=== PATIENT | female | born 1945 | race Caucasian/White ===

== ENCOUNTER 2019-12-17 12:10 | Outpatient (CLI) | payer MEDICARE, SELFPAY | END 2019-12-17 12:11 | disposition home or self-care (01) | LOC: CHSIMG 12:14 | PROVIDERS: Visit Provider Specialist | DX: I25.119 Atherosclerotic heart disease of native coronary artery with unspecified angina pectoris (principal); Z95.1 Presence of aortocoronary bypass graft | CPT/HCPCS: 93306 ==

== ENCOUNTER 2022-11-16 11:19 | Outpatient (CLI) | payer MEDICARE, SELFPAY ==
[2022-11-16 12:11] LABS: Alanine Aminotransferase 22 U/L (14-59); Anion Gap 5 mmol/L (8-16); Aspartate Amino Transferase 21 U/L (15-37); Bilirubin,Total 0.7 mg/dL (0.00-1.00); Blood Urea Nitrogen 25 mg/dL (7-18); Calcium 9.4 mg/dL (8.5-10.1); Carbon Dioxide 34 mmol/L (21-32); Chloride 103 mmol/L (98-108); Estimated Glomerular Filt Rate 47; Glucose 97 mg/dL (70-99); Osmolality Calculated 298 mOsm/kg (285-295); Potassium 3.3 mmol/L (3.5-5.1); Sodium 142 mmol/L (136-145); Total Protein 7.7 g/dL (6.4-8.2)
[2022-11-16 12:12] LABS: Albumin Level 3.7 g/dL (3.4-5.0); Alkaline Phosphatase 82 U/L (46-116); Cholesterol 199 mg/dL (0-200); HDL Direct 48 mg/dL (40-60); LDL Cholesterol Calculated 113 mg/dL (<130); Triglycerides 190 mg/dL (0-150)
== END 2022-11-16 11:20 | disposition home or self-care (01) ==
LOC: CHSLAB 11:23
PROVIDERS: PCP Family Medicine; Visit Provider Internal Medicine Cardiovascular Disease
DX: E78.2 Mixed hyperlipidemia (principal); Z79.899 Other long term (current) drug therapy
CPT/HCPCS: 36415; 80053; 80061

== ENCOUNTER 2023-01-17 12:17 | Outpatient (CLI) | payer MEDICARE, SELFPAY ==
[2023-01-17 12:55] LABS: Anion Gap 9 mmol/L (8-16); Blood Urea Nitrogen 24 mg/dL (7-18); Calcium 9.4 mg/dL (8.5-10.1); Carbon Dioxide 32 mmol/L (21-32); Chloride 104 mmol/L (98-108); Cholesterol 171 mg/dL (0-200); Estimated Glomerular Filt Rate 55; Glucose 115 mg/dL (70-99); HDL Direct 46 mg/dL (40-60); LDL Cholesterol Calculated 81 mg/dL (<130); Osmolality Calculated 305 mOsm/kg (285-295); Potassium 3.5 mmol/L (3.5-5.1); Sodium 145 mmol/L (136-145); Triglycerides 220 mg/dL (0-150)
== END 2023-01-17 12:18 | disposition home or self-care (01) ==
LOC: CHSLAB 12:19
PROVIDERS: PCP Family Medicine; Visit Provider Internal Medicine Cardiovascular Disease
DX: E78.2 Mixed hyperlipidemia (principal); Z79.899 Other long term (current) drug therapy
CPT/HCPCS: 36415; 80048; 80061

== ENCOUNTER 2023-07-05 14:36 | Outpatient (CLI) | payer MEDICARE, SELFPAY ==
--- NOTE | ~2023-07-05 | XR_ITS ---
XR_CERV2-3V_CR DATE: 07/05/2023 14:57 INDICATION: Cervical spinal stenosis TECHNIQUE: Standing AP and standing flexion and extension lateral views only COMPARISON: None FINDINGS: C1 and C2 appear normally aligned and the odontoid process appears intact. There is approximately 3 mm anterolisthesis at C3-4 and C4-5 in flexion, reduced to less than 1 mm at C3-4 in extension and 1.5 mm at C4-5 and extension. There is very severe degenerative disc disease and possible fusion at C5-6 with 1.6 mm retrolisthesis , stable in flexion and extension. Severe degenerative disc disease at C6-7. No fracture or dislocation, locked facet or prevertebral soft tissue swelling is noted. There is degenerative change at the apophyseal joints throughout the cervical spine and at the uncove rtebral joints in the mid and lower cervical spine. Status post sternotomy. Right Port-A-Cath catheter overlies superior vena cava. The patient is edentulous. IMPRESSION: Prominent cervical spondylosis Reviewed, dictated and finalized at [facility]. Reviewed, dictated and finalized at location A.
== END 2023-07-05 14:37 | disposition home or self-care (01) ==
PROVIDERS: PCP Family Medicine; Visit Provider Neurological Surgery
DX: M48.02 Spinal stenosis, cervical region (principal); M47.892 Other spondylosis, cervical region
CPT/HCPCS: 72040

== ENCOUNTER 2023-08-06 10:06 | Outpatient (CLI) | payer MEDICARE, SELFPAY ==
--- NOTE | 2023-08-06 10:19 | ECG_ITS ---
Measurements Intervals [place] Rate: 62 P: 62 [place]: 202 QRS: -13 QRSD: 103 T: 0 QT: 431 QTc: 439 Interpretive Statements SINUS RHYTHM INCOMPLETE RIGHT BUNDLE BRANCH BLOCK [90+ ms QRS DURATION, TERMINAL R IN V1/V2, 40+ ms S IN I/aVL/V4/V5/V6] NONSPECIFIC ST & T-WAVE ABNORMALITY NO PREVIOUS ECG AVAILABLE FOR COMPARISON Electronically Signed On 08-06-2023 19:56:12 CDT by Ela Lyon M.D.
[2023-08-06 10:45] LABS: Hematocrit 42.3 % (37.0-47.0); Hemoglobin 13.4 g/dL (12.0-15.0); Mean Corpuscular HGB Conc 31.7 g/dl (32-36); Mean Corpuscular Volume 88.5 fl (80-100); Mean Platelet Volume 11.7 fl (7.4-10.4); Platelet Count Result 252 k/mm3 (150-375); Red Blood Count 4.78 M/mm3 (4.2-5.4); Red Cell Distribution Width 14.1 % (11.5-14.5); White Blood Count 7.6 K/mm3 (4.5-10.0)
[2023-08-06 10:49] LABS: Appearance Urine Clear (Clear); Bilirubin Urine Negative (Negative); Blood Urine Negative (Negative); Color Urine Yellow (Yellow); Glucose Urine UA Negative (Negative); Ketones Urine Negative (Negative); Leukocyte Esterase Ur Negative LEU/UL (NEGATIVE); Nitrate Urine Negative (Negative); Protein Urine Negative (Negative); Specific Grav Ur 1.021 (1.001-1.035); Urobilinogen Urine 0.2 mg/dL (<2.0); pH Urine 5.5 (5.0-9.0)
[2023-08-06 10:54] LABS: Anion Gap 7 mmol/L (8-16); Blood Urea Nitrogen 24 mg/dL (7-17); Calcium 9.7 mg/dL (8.4-10.2); Carbon Dioxide 33 mmol/L (22-30); Chloride 101 mmol/L (98-107); Estimated Glomerular Filt Rate 54; Glucose 102 mg/dL (65-110); Potassium 3.8 mmol/L (3.4-5.0); Sodium 141 mmol/L (137-145)
[2023-08-06 11:09] LABS: Add Urine Microscopic? NO
[2023-08-06 11:11] LABS: INR 0.9; Prothrombin Time 12.5 Seconds (11.1-14.7)
[2023-08-06 11:12] LABS: Partial Thromboplastin Time 25.8 SECONDS (22.3-36.8)
== END 2023-08-06 10:07 | disposition home or self-care (01) ==
LOC: ANHSURGERY 10:10
PROVIDERS: PCP Family Medicine; Visit Provider Neurological Surgery
DX: Z01.818 Encounter for other preprocedural examination (principal); M48.02 Spinal stenosis, cervical region; I45.19 Other right bundle-branch block; R93.1 Abnormal findings on diagnostic imaging of heart and coronary circulation
CPT/HCPCS: 36415; 80048; 81003; 85027; 85610; 85730; 86850; 86900; 86901; 93005

== ENCOUNTER 2023-08-28 14:38 | Inpatient (IN) | payer MEDICARE, SELFPAY ==
[2023-08-05 14:12] VITALS: BMI 29.4
--- NOTE | 2023-08-05 14:39 | PC.NURSE ---
PRE-OP INSTRUCTIONS, PLEASE READ CAREFULLY Report to the Outpatient Waiting Room, entrance under the green pavilion located off [facility], at time _0800_ on date _08/08/23_. Planned Procedure Time: _1000_. PACK A SMALL OVERNIGHT BAG AND LEAVE IN THE CAR Time changes happen often and if your time is changed the preop area will call you the afternoon before. - You and your visitor will be asked to self-screen and do not enter if you have any COVID symptoms. - A mask is optional within the hospital at this time. -VISITING HOURS 8AM-8PM Patients may have clear liquids (water, carbonated beverages, clear teas, apple juice) until 3 hours prior to surgery (0700 AM) with a maximum of 20 ounces. - No food from midnight until time of surgery Take the following medications with a SIP of water the morning of surgery: _CARVEDILOL, SERTRALINE, - TRAMADOL IF NEEDED _ DO NOT STOP ANY OF YOUR OTHER PRESCRIPTION MEDICATIONS PRIOR TO SURGERY ?EXCEPT THE FOLLOWING Medications to discontinue per DR. BAILEY - _PT STATES LAST TAKING ASPIRIN 08/02/23_ Medications to discontinue per ANESTHESIA - _MULTIVITAMIN OF TODAY Date to take last dose 08/05/23_ Please no make-up, nail macedonian, hairspray, perfume, deodorant, or body powder the day of surgery. No jewelry (including any body piercings) or valuables the day of surgery, leave them at home. Please take a shower or bath the night before, or the morning of, surgery with an antibacterial soap. Wear comfortable, loose fitting clothing. - Jewelry must be removed prior to entering the operating room. Rings and piercings that are not removed may be cut off. - The hospital will not accept responsibility for valuables. - Please leave all valuables, including medications, at home the day of surgery. If you are going home after surgery, a licensed armor reconnaissance vehicle driver must drive you home. - NO public transportation without another adult if you receive anesthesia. - We recommend that an adult stay with you for 24 hours following discharge. - We also recommend that you do not drive, make important decision, drink alcoholic beverages, or take any drugs that were not prescribed by your health care provider for at least 24 hours after your discharge time. Follow any additional instructions given to you from your surgeon. If you or anyone in your household have experienced Covid symptoms in the past week, please notify your surgeon or the nurse liaison at the phone number below for possible testing. Telephone instructions given to _PATIENT_and asked if any additional questions and then verbalized understanding. Patient advised to call surgeon office or pre surgery nurse liaison [phone] if any additional questions.
--- NOTE | 2023-08-07 14:21 | WPDANESEPPF ---
Anes - Initial Pre Proc Eval Procedure: Operation Date: 08/08/23 10:00 Proposed Procedures p C3-4, C4-5, C5-6, C6-7 Posterior Cervical Decompression and Fusion - Florecita Lopez MD Date/Time: 08/07/23 14:21 Surgeon: lForecita Lopez MD Pre Op Diagnosis: cervical stenosis Patient Data Age: 78 Gender: F Height: 1.63 m Weight: 77.72 kg Allergies Allergy/AdvReac Type Severity Reaction Status Date / Time NSAIDS (Non-Steroidal AdvReac Gastrointestinal Verified 08/05/23 14:05 Anti-Inflamma Upset Home Medications Medication Instructions Recorded Confirmed Type atorvastatin 40 mg tablet 40 mg PO QHS 07/05/23 08/05/23 History carvedilol 12.5 mg tablet 12.5 mg PO Q12H 07/05/23 08/05/23 History chlorthalidone 25 mg tablet 25 mg PO DAILY 07/05/23 08/05/23 History omeprazole 20 mg capsule,delayed 20 mg PO DAILY 07/05/23 08/05/23 History release sertraline 100 mg tablet 200 mg PO DAILY 07/05/23 08/05/23 History aspirin 81 mg tablet,delayed 162 mg PO HS 08/05/23 08/05/23 History release cetirizine 10 mg tablet (Zyrtec) 10 mg PO DAILY 08/05/23 08/05/23 History multivitamin 1 tablet PO DAILY 08/05/23 08/05/23 History potassium 20 mg chewable tablet 60 mg PO DAILY 08/05/23 08/05/23 History tramadol 50 mg tablet 50 mg PO BID PRN Pain 08/05/23 08/05/23 History Results Review: All pre-operative results and documents have been reviewed as part of the pre-operative evaluation. [facility] Past Medical History Medical History (Updated 08/07/23 @ 14:22 by Amado Mercedes DO) Fibromyalgia Heart disease Hyperlipemia NEDRA (obstructive sleep apnea) Rheumatoid arthritis Surgical History Surgical History (Updated 08/07/23 @ 14:22 by Amado Mercedes DO) History of Hx of CABG Family History Family History (Updated 07/05/23 @ 15:47 by Reba Green) Father Alcoholism Hypertension Heart problem Mother Hypertension Social History Social History (Updated 07/05/23 @ 15:48 by Reba Green) Smoking packs per day: 1 Smoking cigarettes per day: 20.0 Years smoked: 35 Smoking pack-years: 35.00 Smoking status: Former smoker Tobacco type: cigarettes Second hand tobacco smoke exposure: No Smoking end date: 10/14/93 Alcohol intake: current Alcohol use details: RARELY - COUPLE TIMES A YEAR Substance use: never Substance use type: does not use Lack of Transportation: No Lack of Food: Never True Concerned About Future Housing: No Difficulty Paying Gas/Electric Bills: No Difficulty Paying for Meds: No Currently Unemployed: No Education: Associate Degree Difficulty w/ Childcare or Family Care: YES Living arrangements: with family Additional living arrangements comments: LIVES WITH [id number] Occupation/Education: retired Gender identity (if verbalized by the patient): Female Sexual Orientation (if Verbalized by the Patient): Straight or Heterosexual Spiritual care concerns: No Anes - Eval Final PreProcedure Day of Procedure 08/07/23 14:21 Patient weight: overweight Heart: regular rate and rhythm Lungs: clear to auscultation Airway: Mallampati scale class II Neurological: alert and oriented Last oral intake: >/= 8 hours ASA classification: III Emergent: no Anesthetic plan: proceed Anesthesia type and monitoring: general ETT and standard monitoring Results Review: All pre-operative results and documents have been reviewed as part of the pre-operative evaluation. Informed Consent: The patient's anesthetic plan and its attendant risks and benefits were discussed with the patient/family/POA. Questions were solicited and answers provided to the satisfaction of the patient/family/POA.
--- NOTE | 2023-08-26 10:33 | PC.NURSE ---
Addendum entered by Estelle José RN 08/26/23 10:43: BRING CPAP DAY OF SURGERY Original Note: Report to the Outpatient Waiting Room, entrance under the green pavilion located off [facility], at time __0730 on date __08/28/23 . Planned Procedure Time: __929 . Time changes happen often and if your time is changed the preop area will call you the afternoon before. - You and your visitor will be asked to self-screen and do not enter if you have any COVID symptoms. - A mask is optional within the hospital at this time. Patients may have clear liquids (water, carbonated beverages, clear teas, apple juice) until 3 hours prior to surgery with a maximum of 20 ounces. - No food from midnight until time of surgery - Infants may have breast milk until 4 hours before surgery, infant formula 6 hours prior to surgery. - Children will be allowed to drink immediately following surgery. If applicable, please bring a bottle or sippy cup to assist with drinking. Juice, water, soda, and popsicles are readily available. For infants on formula, please bring formula the day of surgery. Pacifiers are allowed. Take the following medications with a SIP of water the morning of surgery: __CARVEDILOL, SERTRALINE DO NOT STOP ANY OF YOUR OTHER PRESCRIPTION MEDICATIONS PRIOR TO SURGERY ?EXCEPT THE FOLLOWING Medications to discontinue per physician PATIENT STATES HOLD ASPIRIN AND MULTIVITAMIN 7 DAYS PRE OP PER DR SANFORD. LAST DOSE 08/20/23 Please no make-up, nail czech, hairspray, perfume, deodorant, or body powder the day of surgery. No jewelry (including any body piercings) or valuables the day of surgery, leave them at home. Please take a shower or bath the night before, or the morning of, surgery with an antibacterial soap. Wear comfortable, loose fitting clothing. Children are encouraged to wear pajamas. - Jewelry must be removed prior to entering the operating room. Rings and piercings that are not removed may be cut off. - The hospital will not accept responsibility for valuables. - Please leave all valuables, including medications, at home the day of surgery. If you are going home after surgery, a licensed stud driver must drive you home. - NO public transportation without another adult if you receive anesthesia. - We recommend that an adult stay with you for 24 hours following discharge. - We also recommend that you do not drive, make important decision, drink alcoholic beverages, or take any drugs that were not prescribed by your health care provider for at least 24 hours after your discharge time. For Pediatric surgeries, we recommend two adults accompany the child home. Follow any additional instructions given to you from your surgeon. If you or anyone in your household have experienced Covid symptoms in the past week, please notify your surgeon or the nurse liaison at the phone number below for possible testing. Telephone instructions given to _PT and asked if any additional questions and then verbalized understanding. Patient advised to call surgeon office or pre surgery nurse liaison [phone] if any additional questions.
--- NOTE | 2023-08-26 10:39 | PC.NURSE ---
PT STATES NO CHANGE IN HEALTH HX SINCE LAST INTERVIEW ON 08/05/23
[2023-08-28] VITALS (17 sets, daily range): BP systolic 121–165; BP diastolic 61–96; PULSE 58–67; RESP 12–18; TEMP 36.1–37; O2SAT 92–98
--- NOTE | ~2023-08-28 | XR_ITS ---
EXAMINATION: XR fluoroscopy no charge DATE: 08/28/2023 13:41 INDICATION: Cervical decompression and fusion, C3-7. TECHNIQUE: A single intraoperative lateral view of the cervical spine was obtained. I was not present . Fluoroscopy exposure time was 17 seconds. COMPARISON: Cervical spine radiographs 08/04/2023 FINDINGS: There are changes of posterior fusion procedure from C3 to C7 with lateral mass screws. IMPRESSION: 1. Posterior fusion procedure from C3 to C7. Reviewed, dictated and finalized at location A. [employer]
[2023-08-28] MEDS: LACTATED RINGERS 1,000 ML 30 ML IV CONT ×2 (08:00→14:34)
--- NOTE | 2023-08-28 09:35 | WPDHPUPDATE1 ---
History and Physical Update Update Date/Time: 08/28/23 09:36 History and Physical has been reviewed, including an updated exam of the patient. There are NO changes in the patient's condition. Risks, benefits, and alternatives have been discussed and questions answered. Patient agrees to proceed with procedure.
--- NOTE | 2023-08-28 09:45 | WPDANESEPPF ---
Anes - Initial Pre Proc Eval Procedure: Operation Date: 08/28/23 10:00 Proposed Procedures p C3-4, C4-5, C5-6, C6-7 Posterior Cervical Decompression and Fusion - Florecita Moon MD Date/Time: 08/28/23 09:45 Surgeon: Florecita Moon MD Pre Op Diagnosis: cervical stenosis Patient Data Age: 78 Gender: F Height: 1.63 m Weight: 77.7 kg Last Vital Signs Temp 98.6 F 08/28/23 08:00 Pulse 64 08/28/23 08:00 Resp 12 08/28/23 08:00 BP 124/69 08/28/23 08:00 Pulse Ox 97 08/28/23 08:00 O2 Del Method Room Air 08/28/23 08:00 Allergies Allergy/AdvReac Type Severity Reaction Status Date / Time NSAIDS (Non-Steroidal AdvReac Gastrointestinal Verified 08/28/23 08:57 Anti-Inflamma Upset Home Medications Medication Instructions Recorded Confirmed Type atorvastatin 40 mg tablet 40 mg PO QHS 07/05/23 08/26/23 History carvedilol 12.5 mg tablet 12.5 mg PO Q12H 07/05/23 08/28/23 History chlorthalidone 25 mg tablet 25 mg PO DAILY 07/05/23 08/26/23 History omeprazole 20 mg capsule,delayed 20 mg PO DAILY 07/05/23 08/26/23 History release sertraline 100 mg tablet 200 mg PO DAILY 07/05/23 08/28/23 History aspirin 81 mg tablet,delayed 162 mg PO HS 08/05/23 08/26/23 History release cetirizine 10 mg tablet (Zyrtec) 10 mg PO DAILY 08/05/23 08/26/23 History multivitamin 1 tablet PO DAILY 08/05/23 08/28/23 History potassium 20 mg chewable tablet 60 mg PO DAILY 08/05/23 08/26/23 History tramadol 50 mg tablet 50 mg PO BID PRN Pain 08/05/23 08/26/23 History Laboratory Tests 08/28/23 08:10 Blood Type A Positive Antibody Screen Negative Patient hx anesthesia problems: none Family hx anesthesia problems: none Results Review: All pre-operative results and documents have been reviewed as part of the pre-operative evaluation. [facility] Past Medical History Medical History Fibromyalgia Heart disease Hyperlipemia NEDRA (obstructive sleep apnea) Rheumatoid arthritis Surgical History Surgical History History of Hx of CABG Family History Family History Father Alcoholism Hypertension Heart problem Mother Hypertension Social History Social History (Updated 08/22/23 @ 10:32 by Reba Green) Smoking packs per day: 1 Smoking cigarettes per day: 20.0 Years smoked: 35 Smoking pack-years: 35.00 Smoking status: Former smoker Tobacco type: cigarettes Second hand tobacco smoke exposure: No Smoking end date: 10/14/93 Alcohol intake: current Alcohol use details: RARELY - COUPLE TIMES A YEAR Substance use: never Substance use type: does not use Lack of Transportation: No Lack of Food: Never True Current Housing: I Have Housing Concerned About Future Housing: No Difficulty Paying Gas/Electric Bills: No Difficulty Paying for Meds: No Currently Unemployed: No Education: Decline to Answer Difficulty w/ Childcare or Family Care: YES Living arrangements: with family Additional living arrangements comments: LIVES WITH [id number] Occupation/Education: retired Gender identity (if verbalized by the patient): Female Sexual Orientation (if Verbalized by the Patient): Straight or Heterosexual Spiritual care concerns: No Anes - Eval Final PreProcedure Day of Procedure 08/28/23 09:45 Patient weight: obese Heart: regular rate and rhythm Lungs: clear to auscultation Airway: Mallampati scale class II Neurological: alert and oriented Last oral intake: >/= 8 hours ASA classification: III Emergent: no Anesthetic plan: proceed Anesthesia type and monitoring: general ETT and standard monitoring Results Review: All pre-operative results and documents have been reviewed as part of the pre-operative evaluation. Informed Consent: The patient's anesthetic plan and its a
[2023-08-28] MEDS: ceFAZolin 2 GM/D5W 50 ML 2 GM/50 ML BAG IVPB ×2 (10:36→20:20)
[2023-08-28] MEDS: BUPIVACAINE/EPINEPHRINE 0.5% 50 ML VIAL 10 ML INFILTRATE (11:55)
--- NOTE | 2023-08-28 14:00 | SUR.OPER ---
200mL clear yellow urine drained from vo catheter
--- NOTE | 2023-08-28 14:43 | W.PM.PROC2 ---
Procedure Note - Detailed Date of Procedure 08/28/23 Pre-op Diagnosis 1. Cervical stenosis 2. Cervical myelopathy Post-op Diagnosis Same Procedure Performed 1. C3, C4, C5, C6, and C7 lateral mass instrumentation 2. C3, C4, C5, and C6 laminectomies 3. Left C5-6 foraminotomy 4. C3-4, C4-5, C5-6, and C6-7 arthrodesis 5. Use of neuromonitoring 6. Use of C-arm for fluoroscopy Surgeon Florecita Moon MD Insurance And Benefits Clerk Kendall Romero Anesthesia General Indications Ms. Worley is a 78-year-old female with history of cervical myelopathy whose MRI cervical showed severe spinal cord compression particularly at C3-4 and C4-5 as well as in the neuroforamen at C5-6. Surgery in the form of PCDF C3-7 was recommended. Risks including bleeding, pain, infection, weakness, spinal cord injury, pseudoarthrosis, paralysis, and anesthetic complications were discussed. The patient provided written informed consent to proceed. Description of Procedure The patient was brought to the operating room where endotracheal anesthesia was induced. Neuromonitoring leads were attached. The Kan headholder was applied, and the patient was transferred to the operating table in the prone position. The head was secured to the bed. All pressure points were padded. The C-arm was used to evaluate the planned incision. The planned surgical site was prepped and draped in usual sterile fashion. Time out was conducted, and local anesthesia was injected. A 10-blade scalpel was used to make the incision. The subcutaneous tissue was dissected with the bovie until the spinous processes were encountered. Self-retaining retractors were placed. A clamp was placed on a spinous process which was confirmed to be the C3 level with the C-arm. The incision was extended inferiorly to better expose down to the inferior level. The muscles were elevated in a subperiosteal fashion to expose the laminae and lateral masses of C3 through C7 bilaterally. The facet joints were exposed and defined with the bovie, and the info analyst holes for the lateral mass screws were created with the high-speed drill. On the right side, the hand drill was used to drill through the lateral mass to a depth of 12mm at C3. The trajectory was palpated with a ball-tip probe to ensure where were no breeches in the bone. The drill was then lengthened to 14mm. The 3.0mm tap was then passes. This was repeated at C4, C5, C6, and C7. Bone wax was placed over the screw holes. This was then repeated on the left side at C3, C4, C5, C6, and C7. A bone breech was noted on the left at C3; otherwise the remainder were intact to 14mm. We then turned our attention to the laminectomies. The high-speed drill was used to create a trough through the laminae of C3, C4, C5, and C6. The posterior elements were elevated with a Leksell and Kerrison rongeurs, and the bone was passed off to be morselized for autograft. The ligamentum flavum was elevated with the bone. Small residual pieces of ligamentum and bone were removed with the kerrison. The left C5-6 foramen was opened with a kerrison. The facet joints were decorticated with the drill.? We ensured hemostasis with the bipolar and Floseal. We next turned our attention to the lateral mass screws. The screw trajectories were palpated again with the balltip probe. 14 x 3.5mm screws were placed at each level bilaterally with exception of on the left at C3 at which a 12mm screw was placed. 70mm rods were placed followed by set screws which were final tightened. The area was copiously irrigated. Autograft mixed with cancellous bone chips were placed lateral to the screws bilaterally and into the facets. A hemovac drain was placed in the epidural space and tunneled inferiorly. A final motor was completed with no changes in monitoring throughout the procedure. The muscle was approximated with 0 vicryl. The fascia was closed with 0 vicryl as well. The dermis was closed with 2-0 and 3-0 vicryl. The skin was closed with running 3-0 nylon. The
[2023-08-28] MEDS: fentaNYL CITRATE INJ (*CRX) 100 MCG/2 ML VIAL 25 MCG IV PUSH ×8 (15:10→16:04)
[2023-08-28] MEDS: SODIUM CHLORIDE 0.9% IV 1,000 ML 100 ML IV CONT (17:15)
[2023-08-28] MEDS: ACETAMINOPHEN 500 MG TABLET 1000 MG PO (17:20)
[2023-08-28] MEDS: oxyCODONE HCL (*CRX) 5 MG TAB IR PO (17:58)
--- NOTE | 2023-08-28 18:39 | ADMGEN ---
This patient, Cathy Worley, was admitted to 2 Medical Room 251-01. Patient/family oriented to hospital policies and general routines including ID bracelet, bed and alarms, visiting hours, pain management, procedures, bathroom and other care routines, personal items, smoking policy, room service/diet, and visiting hours. Information on how to activate the Rapid Response Team has been discussed. Patient/Family are encouraged to report perceived risks to care and to ask questions if they do not understand what they are told or what they should do.
[2023-08-28] MEDS: CYCLOBENZAPRINE HCL 10 MG TABLET PO (20:19)
[2023-08-28] MEDS: DOCUSATE SODIUM 100 MG CAPSULE PO (20:19)
[2023-08-28] MEDS: ATORVASTATIN 40 MG TABLET PO (20:19)
[2023-08-28] MEDS: carvediloL 12.5 MG TABLET PO (20:19)
[2023-08-28] MEDS: oxyCODONE HCL (*CRX) 5 MG TAB IR 10 MG PO (22:15)
--- NOTE | 2023-08-28 23:49 | PCRCNOTE ---
Patient has her home cpap unit. However, due to having surgery today on the back of her neck, she refused to wear cpap tonight. She stated the head gear sits in the same area as where her surgery was performed, therefore, the area is very tender.
[2023-08-29] VITALS (8 sets, daily range): BP systolic 126–147; BP diastolic 55–71; PULSE 59–74; RESP 16–18; TEMP 36.1–36.6; O2SAT 91–95
[2023-08-29] MEDS: ACETAMINOPHEN 500 MG TABLET 1000 MG PO ×5 (01:02→23:07)
[2023-08-29] MEDS: ceFAZolin 2 GM/D5W 50 ML 2 GM/50 ML BAG IVPB ×3 (03:20→18:33)
[2023-08-29] MEDS: SODIUM CHLORIDE 0.9% IV 1,000 ML 100 ML IV CONT (03:39)
[2023-08-29] MEDS: oxyCODONE HCL (*CRX) 5 MG TAB IR 10 MG PO ×4 (04:35→20:07)
[2023-08-29] MEDS: carvediloL 12.5 MG TABLET PO ×2 (08:35→20:06)
[2023-08-29] MEDS: SERTRALINE HCL 50 MG TABLET 200 MG PO (08:35)
[2023-08-29] MEDS: DOCUSATE SODIUM 100 MG CAPSULE PO ×2 (08:35→20:06)
[2023-08-29] MEDS: CHLORTHALIDONE 25 MG TABLET PO (08:36)
[2023-08-29] MEDS: CYCLOBENZAPRINE HCL 10 MG TABLET PO ×2 (08:36→17:37)
[2023-08-29] MEDS: LORATADINE 10 MG TABLET PO (08:36)
[2023-08-29] MEDS: PANTOPRAZOLE 40 MG TABLET PO (08:36)
--- NOTE | 2023-08-29 11:06 | PCPTNOTE ---
Attempted PT evaluation, pt refused due to pain. RN aware. Will follow.
--- NOTE | 2023-08-29 11:10 | WPDANESPN ---
Anes - Prog Note Post-Op Date/Time: 08/29/23 11:10 Cardiovascular status: normal Respiratory status: normal Airway patency: baseline Mental status: baseline Post-Op hydration status: normal Vital Signs: Last Vital Signs Temp 36.4 C 08/29/23 04:25 Pulse 59 L 08/29/23 08:35 Resp 16 08/29/23 04:25 BP 147/66 H 08/29/23 08:33 Pulse Ox 95 08/29/23 08:33 O2 Del Method Room Air 08/29/23 08:35 O2 Flow Rate 1 08/28/23 20:00 Pain Score (VAS): 10 I/O: Intake & Output 08/28/23 08/29/23 08/29/23 23:59 07:59 15:59 Intake Total 550 1300 240 Output Total 100 430 Balance 450 870 240 Post-procedural complaints: none Patient Feedback: Patient satisfied with anesthetic care.
[2023-08-29] MEDS: MORPHINE SULFATE (*CRX) 2 MG/ML INJ IV PUSH (11:17)
--- NOTE | 2023-08-29 16:30 | WPDNEUROSGPN ---
Progress Note: A&P Assessment and Plan (1) Cervical myelopathy: Code(s): G95.9 - Disease of spinal cord, unspecified Status: Acute (2) Status post cervical arthrodesis: Code(s): Z98.1 - Arthrodesis status Status: Acute Plan s/p PCDF C3-7 on 08/28 Plan: -Hemovac drain removed at bedside -Encouraged mobilization and being up in chair -Anticipate discharge home tomorrow Subjective Date/time seen: 08/29/23 16:30 Interval history: Overall doing well with pain adequately controlled with medication. Ambulated with physical therapy in halls. Tolerating PO and voiding well. Review of Systems Review of Systems: All systems reviewed & are unremarkable except as noted in HPI and below Exam Narrative: AOX4 Full strength in all extremities Sensation intact to light touch Dressing c/d/i Objective Data Vital Signs Vital Signs: Vital Signs - 24 hr 08/28/23 16:45 08/28/23 17:08 08/28/23 17:00 Temperature 98.1 F Pulse Rate 64 60 Respiratory Rate 16 16 Blood Pressure 141/73 H 153/75 H Pulse Oximetry 95 95 97 Oxygen Delivery Nasal Cannula Nasal Cannula Oxygen Flow Rate 1 1 08/28/23 17:38 08/28/23 20:19 08/28/23 20:24 Temperature 98.1 F 97.9 F Pulse Rate 58 L 62 60 Respiratory Rate 16 16 Blood Pressure 165/78 H 155/71 H Pulse Oximetry 97 92 Oxygen Delivery Oxygen Flow Rate 08/28/23 20:00 08/29/23 00:37 08/29/23 04:25 Temperature 97.8 F 97.6 F Pulse Rate 61 60 Respiratory Rate 16 16 Blood Pressure 130/71 133/60 Pulse Oximetry 94 93 Oxygen Delivery Nasal Cannula Oxygen Flow Rate 1 08/29/23 08:33 08/29/23 08:35 08/29/23 08:35 Temperature Pulse Rate 59 L 59 L Respiratory Rate Blood Pressure 147/66 H Pulse Oximetry 95 Oxygen Delivery Room Air Oxygen Flow Rate 08/29/23 11:43 08/29/23 14:00 Temperature 97.9 F Pulse Rate 59 L Respiratory Rate 18 Blood Pressure 126/55 L Pulse Oximetry 91 Oxygen Delivery Room Air Oxygen Flow Rate Intake/Output Intake/Output: Intake & Output 08/26/23 08/27/23 08/28/2323 23:59 23:59 23:59 23:59 Intake Total 600 1590 Output Total 100 430 Balance 500 1160 Meds/Results Medications: Active Medications Generic Name Dose Route Start Last Admin Trade Name Freq PRN Reason Stop Dose Admin Acetaminophen 1,000 mg 08/28/23 18:00 08/29/23 11:16 Acetaminophen 500 Mg Tablet PO 1,000 mg Q6H YADY Administration Al Hydrox/Mg Hydrox/Simethicone 20 ml 08/28/23 14:38 Mag Hydrox/Al Hydrox/Simeth 30 Ml Udc PO Q4H PRN Indigestion/Heartburn Atorvastatin Calcium 40 mg 08/28/23 21:00 08/28/23 20:19 Atorvastatin 40 Mg Tablet PO 40 mg QHS YADY Administration Bisacodyl 10 mg 08/28/23 14:38 Bisacodyl 10 Mg Suppository RECTAL DAILY PRN Constipation Carvedilol 12.5 mg 08/28/23 21:00 08/29/23 08:35 Carvedilol 12.5 Mg Tablet PO 12.5 mg Q12H YADY Administration Chlorthalidone 25 mg 08/29/23 09:00 08/29/23 08:36 Chlorthalidone 25 Mg Tablet PO 25 mg DAILY YADY Administration Cyclobenzaprine HCl 10 mg 08/28/23 14:38 08/29/23 08:36 Cyclobenzaprine Hcl 10 Mg Tablet PO 10 mg TID PRN Administration Muscle Spasms Docusate Sodium 100 mg 08/28/23 21:00 08/29/23 08:35 Docusate Sodium 100 Mg Capsule PO 100 mg Q12HR YADY Administration Cefazolin Sodium 2 gm in 50 mls @ 100 mls/hr 08/28/23 19:00 08/29/23 11:18 Ancef 2 Gm/D5w 50 Ml IVPB 100 mls/hr Q8H YADY Administration Sodium Chloride 1,000 mls @ 100 mls/hr 08/28/23 17:15 08/29/23 15:30 Normal Saline Iv IV CONT 30 mls/hr .Q10H YADY Infusion Loratadine 10 mg 08/29/23 09:00 08/29/23 08:36 Loratadine 10 Mg Tablet PO 10 mg QAM YADY Administration Miscellaneous Information 0 each 08/28/23 00:01 Potassium Home Med - Please Clarify Dose And Directions - Is This An Otc Potassium Supplem XX 09/27/23 00:00 CL
[2023-08-29] MEDS: POTASSIUM CHLORIDE 20 MEQ ER TABLET 40 MEQ PO (18:33)
[2023-08-29] MEDS: ATORVASTATIN 40 MG TABLET PO (20:06)
[2023-08-29] MEDS: SODIUM CHLORIDE 0.9% IV 1,000 ML 30 ML IV CONT (20:09)
[2023-08-29] MEDS: oxyCODONE HCL (*CRX) 5 MG TAB IR PO (23:10)
[2023-08-30] MEDS: ceFAZolin 2 GM/D5W 50 ML 2 GM/50 ML BAG IVPB ×2 (03:21→10:39)
[2023-08-30 04:31] VITALS: BP 122/80; PULSE 70; RESP 16; TEMP 36.6; O2SAT 92
[2023-08-30] MEDS: ACETAMINOPHEN 500 MG TABLET 1000 MG PO ×2 (05:09→11:45)
[2023-08-30] MEDS: oxyCODONE HCL (*CRX) 5 MG TAB IR 10 MG PO ×2 (05:29→10:28)
--- NOTE | 2023-08-30 08:51 | WPDNEUROSGPN ---
Progress Note: A&P Assessment and Plan (1) Status post cervical arthrodesis: Code(s): Z98.1 - Arthrodesis status Status: Acute Plan s/p PCDF C3-7 on 08/28 okay to shower and get incision wet. Soft cervical collar for comfort but not required. Plan to work with therapy this am and discharge this afternoon. Will have Care coordination consult and see if patient qualifies for home health PT/OT - patient lives with [id number] and states she has medical issues as well. Qian Noe PA-C I'm at extension [phone] today Time Spent With Patient Time with patient: less than 15 minutes Subjective Date/time seen: 08/30/23 08:51 Interval history: c/o expected neck stiffness and ongoing posterior neck pain. No worse than yesterday and no new symptoms Exam Narrative: Patient is A,A,O x3 She is moving all ext symmetric and full Posterior incision is intact with external sutures, dressing romoved. Objective Data Vital Signs Vital Signs: Vital Signs - 24 hr 08/29/23 11:43 08/29/23 14:00 08/29/23 18:20 Temperature 97.9 F 96.9 F L Pulse Rate 59 L 74 Respiratory Rate 18 16 Blood Pressure 126/55 L 134/59 L Pulse Oximetry 91 93 Oxygen Delivery Room Air 08/29/23 20:06 08/29/23 20:00 08/29/23 21:39 Temperature 97.8 F Pulse Rate 71 67 Respiratory Rate 16 Blood Pressure 140/58 L Pulse Oximetry 92 Oxygen Delivery Room Air 08/30/23 04:31 Temperature 97.8 F Pulse Rate 70 Respiratory Rate 16 Blood Pressure 122/80 Pulse Oximetry 92 Oxygen Delivery Intake/Output Intake/Output: Intake & Output 08/27/23 08/28/23 08/29/23 08/30/23 23:59 23:59 23:59 23:59 Intake Total 600 2930 400 Output Total 100 430 900 Balance 500 2500 -500 Meds/Results Medications: Active Medications Generic Name Dose Route Start Last Admin Trade Name Freq PRN Reason Stop Dose Admin Acetaminophen 1,000 mg 08/28/23 18:00 08/30/23 05:09 Acetaminophen 500 Mg Tablet PO 1,000 mg Q6H YADY Administration Al Hydrox/Mg Hydrox/Simethicone 20 ml 08/28/23 14:38 Mag Hydrox/Al Hydrox/Simeth 30 Ml Udc PO Q4H PRN Indigestion/Heartburn Atorvastatin Calcium 40 mg 08/28/23 21:00 08/29/23 20:06 Atorvastatin 40 Mg Tablet PO 40 mg QHS YADY Administration Bisacodyl 10 mg 08/28/23 14:38 Bisacodyl 10 Mg Suppository RECTAL DAILY PRN Constipation Carvedilol 12.5 mg 08/28/23 21:00 08/29/23 20:06 Carvedilol 12.5 Mg Tablet PO 12.5 mg Q12H YADY Administration Chlorthalidone 25 mg 08/29/23 09:00 08/29/23 08:36 Chlorthalidone 25 Mg Tablet PO 25 mg DAILY YADY Administration Cyclobenzaprine HCl 10 mg 08/28/23 14:38 08/29/23 17:37 Cyclobenzaprine Hcl 10 Mg Tablet PO 10 mg TID PRN Administration Muscle Spasms Docusate Sodium 100 mg 08/28/23 21:00 08/29/23 20:06 Docusate Sodium 100 Mg Capsule PO 100 mg Q12HR YADY Administration Cefazolin Sodium 2 gm in 50 mls @ 100 mls/hr 08/28/23 19:00 08/30/23 03:21 Ancef 2 Gm/D5w 50 Ml IVPB 100 mls/hr Q8H YADY Administration Sodium Chloride 1,000 mls @ 100 mls/hr 08/28/23 17:15 08/29/23 20:09 Normal Saline Iv IV CONT 30 mls/hr .Q10H YADY Administration Loratadine 10 mg 08/29/23 09:00 08/29/23 08:36 Loratadine 10 Mg Tablet PO 10 mg QAM YADY Administration Morphine Sulfate 2 mg 08/28/23 14:38 08/29/23 11:17 Morphine Sulfate (*Crx) 2 Mg/Ml Inj IV PUSH 2 mg Q4H PRN Administration Breakthrough Pain Ondansetron HCl 4 mg 08/28/23 14:38 Ondansetron Inj 4 Mg/2 Ml Vial IV PUSH Q8H PRN Nausea And Vomiting Oxycodone HCl 5 mg 08/28/23 14:38 08/29/23 23:10 Oxycodone Hcl (*Crx) 5 Mg Tab Ir PO 5 mg Q4H PRN Administration Pain Rated 4-6 Oxycodone HCl 10 mg 08/28/23 14:38 08/30/23 05:29 Oxycodone Hcl (*Crx) 5 Mg Tab Ir PO 10 mg Q4H PRN Administration Pain Rated 7-10 Pantoprazole Sodium 40 mg
[2023-08-30 09:56] VITALS: PULSE 73
[2023-08-30] MEDS: POTASSIUM CHLORIDE 20 MEQ ER TABLET 40 MEQ PO (09:56)
[2023-08-30] MEDS: DOCUSATE SODIUM 100 MG CAPSULE PO (09:56)
[2023-08-30] MEDS: CHLORTHALIDONE 25 MG TABLET PO (09:56)
[2023-08-30] MEDS: LORATADINE 10 MG TABLET PO (09:56)
[2023-08-30] MEDS: carvediloL 12.5 MG TABLET PO (09:56)
[2023-08-30] MEDS: SERTRALINE HCL 50 MG TABLET 200 MG PO (09:57)
[2023-08-30] MEDS: PANTOPRAZOLE 40 MG TABLET PO (09:57)
[2023-08-30] MEDS: CYCLOBENZAPRINE HCL 10 MG TABLET PO (10:28)
--- NOTE | 2023-08-30 12:58 | PC.NURSE ---
On 08/30/23, the student, [Eli Silveira], provided care and completed [facility] documentation on this patient. I have reviewed the student's documentation and agree with the findings.
--- NOTE | 2023-08-31 10:32 | PM.DS ---
DS: Admitting Diagnosis Discharge Date 08/30/23 Admitting Diagnosis cervical myelopathy DS: Discharge Diagnosis Discharge Diagnosis (1) Status post cervical arthrodesis: Code(s): Z98.1 - Arthrodesis status Status: Acute (2) Cervical myelopathy: Code(s): G95.9 - Disease of spinal cord, unspecified Status: Acute DS: Summary Hospital Course Hospital Course: Ms. Worley presented for surgery on August 28; please see the operative note for more details. She was transferred to the floor. She worked with therapy after surgery who cleared her for discharge. Her pain was adequately controlled with medications. Her hemovac drain was removed on POD1. She was determined ready for discharge home on POD2. Time Spent with Patient Time attestation: Total time spent providing and/or coordinating discharge services: Exam Narrative: Patient is A,A,O x3 She is moving all ext symmetric and full Posterior incision is intact with external sutures, dressing removed. Discharge Plan Discharge Discharging Clinician: Qian Noe Patient Disposition: Home Health Service Activity: other - see discharge instructions Diet: as tolerated Wound Care Instructions: follow printed instructions Discharge Instructions: Discharge Instructions Procedure: Posterior cervical decompression and fusion Your doctor removed bone and ligament to decompress your spinal cord and nerve roots, and then placed hardware to stabilize the spine. Here are some instructions to follow upon discharge from the hospital to help in your recovery. Activity: Unless released by your doctor, you should not return to work. You should rest at home and let your body heal. Taking short walks is encouraged, but avoid strenuous exercise. Do not jog, run, lift weights, bicycle, or participate in other exercises unless specifically allowed by your doctor. Most importantly, avoid lifting objects heavier than a telephone book or a carton of milk as this places a strain on your neck. If possible, avoid household activities that involve lifting such as laundry, grocery shopping, or childcare. Try to arrange for help from friends and family for these activities while your neck heals. You should not drive for 7-10 days, until you are both off of narcotics and your neck has loosened up enough to safely check your blind spots. You may shower starting on post-operative day 2 (Saturday, August 30). After showering, lightly dab your wound dry. Do not take baths or sit in a hot tub or pool until approved by your doctor. You may get your incision wet with soap and water, but do not submerge the incision under water. DO NOT SMOKE TOBACCO. Smoking has been proven to interfere with the normal healing of the bones in your neck. Smoking will dramatically reduce the success rate of your surgery. Diet: You can return to your usual diet, unless instructed otherwise by your doctor. Medications: You should resume taking all of your normal medications unless instructed otherwise by your doctor. You may take Tylenol 1000mg every 6 hours as needed for pain. If your pain is still uncontrolled after Tylenol, then take oxycodone. You may also take flexeril for neck pain and muscle spasms every 8 hours. However, you should not take anti-inflammatory medications (such as Motrin, Advil, ibuprofen, naproxen) unless specifically approved by your doctor. These medications can prevent your bones from healing properly after surgery. If you have questions about your normal medications (for example, those prescribed for high blood pressure), you should contact your primary care doctor. You will be given a prescription for pain medications and possibly a laxative, as pain medications can cause constipation. Take the pain medication as instructed. If your pain is not reasonably controlled by the medications, contact your doctor's office. Follow-up appointment: You should already have
== END 2023-08-30 13:10 | disposition home health service (06) | DRG 472 ==
LOC: ANH2MED 16:53
PROVIDERS: Admitting Provider Neurological Surgery; PCP Family Medicine; Visit Provider Neurological Surgery
PROC: 0RG2071 Fusion of 2 or more Cervical Vertebral Joints with Autologous Tissue Substitute, Posterior Approach, Posterior Column, Open Approach (ICD-10-PCS; principal; 2023-08-28 10:00)
DX: M48.02 Spinal stenosis, cervical region (principal); G95.9 Disease of spinal cord, unspecified; I10 Essential (primary) hypertension; I25.10 Atherosclerotic heart disease of native coronary artery without angina pectoris; E78.5 Hyperlipidemia, unspecified; G47.33 Obstructive sleep apnea (adult) (pediatric); M06.9 Rheumatoid arthritis, unspecified; M79.7 Fibromyalgia; Z87.891 Personal history of nicotine dependence; Z23 Encounter for immunization; Z95.1 Presence of aortocoronary bypass graft
CPT/HCPCS: 36415; 86850; 86900; 86901; 90471; 90694; 97116; 97161; 97165; 97530; 97535; 99199; A9270; C1713; G0008; J0690; J1100; J2250; J2270; J2405; J2704; J3010; J7030; J7120

== ENCOUNTER 2023-10-22 09:00 | Outpatient (CLI) | payer MEDICARE, SELFPAY ==
--- NOTE | ~2023-10-22 | XR_ITS ---
Cervical Spine: AP, lateral, open-mouth views Clinical History: Arthrodesis COMPARISON: 07/05/2023 Findings: Patient is status post interval posterior fusion extending from C3 through C7, with bilater al rods and transpedicular screws present. There is advanced generative disc narrowing at C5-C6, with moderate degenerative narrowing at C6-C7. No acute fracture or subluxation evident. Pre-vertebral so ft tissues are unremarkable. Impression: Posterior fusion from C3 through C7, as above. Reviewed, dictated and finalized at location M. [employer] Impression: Posterior fusion from C3 through C7, as above.
== END 2023-10-22 09:01 | disposition home or self-care (01) ==
LOC: CHSIMG 09:01
PROVIDERS: PCP Family Medicine; Visit Provider Physician Assistant
DX: Z98.1 Arthrodesis status (principal)
CPT/HCPCS: 72040

== ENCOUNTER 2024-02-25 09:03 | Outpatient (CLI) | payer MEDICARE, SELFPAY ==
--- NOTE | ~2024-02-25 | XR_ITS ---
EXAMINATION: [id number] DATE: 02/25/2024 09:22 INDICATION: Cervical spine surgery postop. TECHNIQUE: 4 views of cervical spine were obtained. COMPARISON: Cervical spine radiograph 09/21/2024 FINDINGS: There is kyphosis of cervical spine. There is 2 mm anterolisthesis of C4 on C5. There is in terbody fusion at C5-C6. There is severely decreased disc height at C6-C7. There are changes of poste rior fusion procedure from C3 to C7 with lateral mass screws. Median sternotomy wires are noted. Ther e is a right internal jugular port. IMPRESSION: 1. Posterior fusion procedure from C3 to C7. Reviewed, dictated and finalized at location A.
== END 2024-02-25 09:04 | disposition home or self-care (01) ==
LOC: CHSIMG 09:07
PROVIDERS: PCP Family Medicine; Visit Provider Neurological Surgery
DX: G95.9 Disease of spinal cord, unspecified (principal); M48.02 Spinal stenosis, cervical region; Z98.1 Arthrodesis status
CPT/HCPCS: 72040

== ENCOUNTER 2024-06-17 01:42 | Day surgery (SDC) | payer MEDICARE, SELFPAY ==
[2024-06-11 10:46] VITALS: BMI 29.2
--- NOTE | 2024-06-11 11:04 | PC.NURSE ---
Report to the Outpatient Waiting Room, entrance under the green pavilion located off [facility], at time __0630am on date _06/17/24 . Planned Procedure Time: ___08:30am .? Time changes happen often and if your time is changed the preop area will call you the afternoon before. - You and your visitor will be asked to self-screen and do not enter if you have any COVID symptoms. Please call surgeon if you need to reschedule. - A mask is optional within the hospital at this time. Patients may have clear liquids (water, carbonated beverages, clear teas, apple juice) until 3 hours prior to surgery ( 05:30am ) with a maximum of 20 ounces. - No food from midnight until time of surgery and no smoking Take only the following medications with a SIP of water on the morning of surgery: Coreg and sertraline. Take Tylenol as needed for pain DO NOT STOP ANY OF YOUR OTHER PRESCRIPTION MEDICATIONS PRIOR TO SURGERY EXCEPT THE FOLLOWING Medications to discontinue per physician Pt to check with Dr Lucas regarding her ASA instructions preop- Phone number given to pt. she will call as soon as we are done w phone call interview. Pt to hold all vitamins, supplements, herbs, and probiotics 3 days prior to surgery per Anesthesia. Date to take last dose_06/13/24 Please no make-up, nail rwandan, hairspray, perfume, deodorant, or body powder the day of surgery.? No jewelry (including any body piercings) or valuables the day of surgery, leave them at home.? Please take a shower or bath the night before, or the morning of, surgery with an antibacterial soap.? Wear comfortable, loose fitting clothing. - Jewelry must be removed prior to entering the operating room.? Rings and piercings that are not removed may be cut off. - The hospital will not accept responsibility for valuables.? - Please leave all valuables, including medications, at home the day of surgery. If you are going home after surgery, a licensed driver education road instructor must drive you home.? - NO public transportation without another adult if you receive anesthesia. - We recommend that an adult stay with you for 24 hours following discharge. - We also recommend that you do not drive, make important decision, drink alcoholic beverages, or take any drugs that were not prescribed by your health care provider for at least 24 hours after your discharge time. Follow any additional instructions given to you from your surgeon- also to ask about any specific scrub if needed as discussed. Telephone instructions given to ____Patient and asked if any additional questions and then verbalized understanding. Patient advised to call surgeon office or pre surgery nurse liaison [phone] if any additional questions.
--- NOTE | 2024-06-16 10:02 | PM.SD2 ---
Same Day Admit/Disch: HPI History of Present Illness Chief complaint: Port-A-Cath no longer needed Narrative: Cathy Worley is a 79 year old female who established as a new patient with Dr. Teixeira in [place]. He noticed that she has a Port-A-Cath which has not been used for years. It has not been flushed for years either. Patient reports she had this placed many years ago as she was receiving transfusions to treat her rheumatoid arthritis. She stopped the transfusions at least 10 yrs ago. She no longer requires treatment for her RA. She is seen now to have this Port-A-Cath removed. [facility] Past Medical History Medical History Fibromyalgia Heart disease Hyperlipemia NEDRA (obstructive sleep apnea) Rheumatoid arthritis Surgical History Surgical History History of Hx of CABG Family History Family History Father Alcoholism Hypertension Heart problem Mother Hypertension Social History Social History Smoking packs per day: 1 Smoking cigarettes per day: 20.0 Years smoked: 20 Smoking pack-years: 20.00 Smoking status: Former smoker Tobacco type: cigarettes Second hand tobacco smoke exposure: No Smoking end date: 10/14/93 Alcohol intake: current Drinks per week: 1 Alcohol use details: RARELY - COUPLE TIMES A YEAR Substance use: never Substance use type: does not use Do You Feel Safe in your Home?: Yes Lack of Transportation: No Lack of Food: Never True Current Housing: I Have Housing Concerned About Future Housing: No Difficulty Paying Gas/Electric Bills: No Difficulty Paying for Meds: No Currently Unemployed: No Education: Decline to Answer Difficulty w/ Childcare or Family Care: No Living arrangements: with friend(s) Additional living arrangements comments: LIVES WITH [id number] Occupation/Education: retired Gender identity (if verbalized by the patient): Female Sexual Orientation (if Verbalized by the Patient): Straight or Heterosexual Spiritual care concerns: No Same Day Admit/Disch: Med Pre-admit Medications Home Medications Medication Instructions Recorded Confirmed Type carvedilol 12.5 mg tablet 12.5 mg PO Q12H 07/05/23 06/11/24 History chlorthalidone 25 mg tablet 25 mg PO DAILY 07/05/23 06/11/24 History omeprazole 20 mg capsule,delayed 20 mg PO DAILY 07/05/23 06/11/24 History release sertraline 100 mg tablet 200 mg PO DAILY 07/05/23 06/11/24 History aspirin 81 mg tablet,delayed 162 mg PO HS 08/05/23 06/11/24 History release cetirizine 10 mg tablet (Zyrtec) 10 mg PO DAILY 08/05/23 06/11/24 History multivitamin 1 tablet PO DAILY 08/05/23 06/11/24 History potassium 20 mg chewable tablet 60 mg PO DAILY 08/05/23 06/11/24 History sennosides 8.6 mg-docusate sodium 1 tab PO HS PRN Constipation 7 08/29/23 06/11/24 Rx 50 mg tablet (Senokot-S) days #14 tabs cyclobenzaprine 10 mg tablet 10 mg PO BID PRN muscle spasm #30 10/24/23 06/11/24 Rx tabs acetaminophen 500 mg tablet 1,000 mg PO DAILY 06/11/24 06/11/24 History atorvastatin 80 mg tablet 80 mg PO DAILY 06/11/24 06/11/24 History tramadol 50 mg tablet 50 mg PO Q6H PRN pain #7 tabs 06/17/24 Rx Review of Systems Review of Systems All systems reviewed & are unremarkable except as noted in HPI and below (HPI) Exam Const: General: comfortable, no acute distress, alert and awake HENMT: Head: normocephalic and atraumatic Mouth: Yes Normal oral and palatal mucosa present Eyes: Conjunctivae: conjunctivae normal Pupils: Equal, round and reactive pupils present EOM: EOMs intact bilaterally Neck: Neck: normal visual inspection, no lymphadenopathy and nontender Chest: Chest palpation & inspection: abnormal inspection of the chest (Right pectoral s
[2024-06-17] MEDS: LACTATED RINGERS 1,000 ML 30 ML IV CONT (07:30)
[2024-06-17 07:32] VITALS: BP 154/47; PULSE 67; RESP 18; TEMP 36.6; O2SAT 94
--- NOTE | 2024-06-17 07:36 | WPDHPUPDATE1 ---
History and Physical Update Update Date/Time: 06/17/24 07:36 History and Physical has been reviewed, including an updated exam of the patient. There are NO changes in the patient's condition. Risks, benefits, and alternatives have been discussed and questions answered. Patient agrees to proceed with procedure.
--- NOTE | 2024-06-17 08:17 | WPDANESEPPF ---
Anes - Initial Pre Proc Eval Procedure: Operation Date: 06/17/24 08:30 Proposed Procedures p Removal Manda Cath - Irving Lucas MD Date/Time: 06/17/24 08:17 Surgeon: Irving Lucas MD Pre Op Diagnosis: Port-A-Cath no longer needed Patient Data Age: 79 Gender: F Height: 1.6 m Weight: 74.2 kg Last Vital Signs Temp 36.6 C 06/17/24 07:32 Pulse 67 06/17/24 07:32 Resp 18 06/17/24 07:32 BP 154/47 H 06/17/24 07:32 Pulse Ox 94 06/17/24 07:32 O2 Del Method Room Air 06/17/24 07:32 Allergies Allergy/AdvReac Type Severity Reaction Status Date / Time NSAIDS (Non-Steroidal AdvReac Gastrointestinal Verified 06/17/24 07:10 Anti-Inflamma Upset Home Medications Medication Instructions Recorded Confirmed Type carvedilol 12.5 mg tablet 12.5 mg PO Q12H 07/05/23 06/11/24 History chlorthalidone 25 mg tablet 25 mg PO DAILY 07/05/23 06/11/24 History omeprazole 20 mg capsule,delayed 20 mg PO DAILY 07/05/23 06/11/24 History release sertraline 100 mg tablet 200 mg PO DAILY 07/05/23 06/11/24 History aspirin 81 mg tablet,delayed 162 mg PO HS 08/05/23 06/11/24 History release cetirizine 10 mg tablet (Zyrtec) 10 mg PO DAILY 08/05/23 06/11/24 History multivitamin 1 tablet PO DAILY 08/05/23 06/11/24 History potassium 20 mg chewable tablet 60 mg PO DAILY 08/05/23 06/11/24 History sennosides 8.6 mg-docusate sodium 1 tab PO HS PRN Constipation 7 08/29/23 06/11/24 Rx 50 mg tablet (Senokot-S) days #14 tabs cyclobenzaprine 10 mg tablet 10 mg PO BID PRN muscle spasm #30 10/24/23 06/11/24 Rx tabs acetaminophen 500 mg tablet 1,000 mg PO DAILY 06/11/24 06/11/24 History atorvastatin 80 mg tablet 80 mg PO DAILY 06/11/24 06/11/24 History Patient hx anesthesia problems: none Family hx anesthesia problems: none Results Review: All pre-operative results and documents have been reviewed as part of the pre-operative evaluation. [facility] Past Medical History Medical History Fibromyalgia Heart disease Hyperlipemia NEDRA (obstructive sleep apnea) Rheumatoid arthritis Surgical History Surgical History History of Hx of CABG Family History Family History Father Alcoholism Hypertension Heart problem Mother Hypertension Social History Social History Smoking packs per day: 1 Smoking cigarettes per day: 20.0 Years smoked: 20 Smoking pack-years: 20.00 Smoking status: Former smoker Tobacco type: cigarettes Second hand tobacco smoke exposure: No Smoking end date: 10/14/93 Alcohol intake: current Drinks per week: 1 Alcohol use details: RARELY - COUPLE TIMES A YEAR Substance use: never Substance use type: does not use Do You Feel Safe in your Home?: Yes Lack of Transportation: No Lack of Food: Never True Current Housing: I Have Housing Concerned About Future Housing: No Difficulty Paying Gas/Electric Bills: No Difficulty Paying for Meds: No Currently Unemployed: No Education: Decline to Answer Difficulty w/ Childcare or Family Care: No Living arrangements: with friend(s) Additional living arrangements comments: LIVES WITH [id number] Occupation/Education: retired Gender identity (if verbalized by the patient): Female Sexual Orientation (if Verbalized by the Patient): Straight or Heterosexual Spiritual care concerns: No Anes - Eval Final PreProcedure Day of Procedure 06/17/24 08:17 Patient weight: overweight Heart: regular rate and rhythm Lungs: decreased breath sounds Airway: Mallampati scale class II Neurological: alert and oriented Last oral intake: >/= 8 hours ASA classification: III Emergent: no Anesthetic plan: proceed Anesthesia type and monitoring: general GIVS and standard monitori
[2024-06-17] MEDS: ceFAZolin 2 GM/D5W 50 ML 2 GM/50 ML BAG IVPB (08:28)
[2024-06-17] MEDS: BUPIVACAINE/EPINEPHRINE 0.5% 10 ML VIAL 20 ML INFILTRATE (08:50)
[2024-06-17 09:00] VITALS: BP 113/65; PULSE 60; RESP 16; O2SAT 91
--- NOTE | 2024-06-17 09:01 | P.OP_ITS ---
Procedure Note - Detailed Date of Procedure 06/17/24 Pre-op Diagnosis Port-A-Cath no longer needed Post-op Diagnosis Same Procedure Performed Removal right pectoral Port-A-Cath Surgeon Irving Lucas MD Press Shop Supervisor Cecilia HOWARD Anesthesia General (G IV S) and Local Indications The patient has a right pectoral Port-A-Cath that was placed for rheumatoid arthritis infusions. It is not been used or flushed for 10 years. She is taken to surgery now for removal Findings Intact Port-A-Cath Description of Procedure Patient was taken to the operating room and placed in a supine position. The right chest and right neck were prepped and draped. Local anesthesia was infiltrated over the previous placement scar and all around the pocket of the reservoir. Incision was made and then dissection was carried out around the reservoir until it was able to be easily removed from the fibrous sheath and subcutaneous. I did not encounter any sutures holding the reservoir in place. I looked in the pocket and saw no sutures there either. I gently removed the Port-A-Cath tubing from the subcutaneous tunnel. It appeared the placement was internal jugular as the tubing clearly went over the right clavicle. There was no back bleeding after removing the Port-A-Cath tubing. I looked at the into the tubing and saw that it was not jagged or irregular. I also checked the the lengths marked on the Port-A-Cath tubing and they were appropriate for the length to the end of the Port-A-Cath. From this information, I judged that the Port-A-Cath had been removed intact. I recheck for any back bleeding and there was none. 4-0 Vicryl used to close the subcutaneous in interrupted fashion. Some subcuticular 4-0 Vicryl skin sutures were placed. Finally the skin was closed with a running 4-0 Monocryl skin suture. The wound was dressed with Exofin surgical adhesive. The patient was then awakened and taken to recovery in good condition. Sponge and needle counts were correct x2. Estimated Blood Loss -2 Drains No Packing No Pathology None sent Complications None Condition Stable Disposition Same day [facility] Billing Surgery - Charge Forward: Surgery Billing (Removal Port-A-Cath)
[2024-06-17 09:30] VITALS: BP 113/71; PULSE 58; RESP 20
[2024-06-17 09:45] VITALS: BP 120/70; PULSE 60; RESP 20
== END 2024-06-17 09:51 | disposition home or self-care (01) ==
PROVIDERS: PCP Family Medicine; Visit Provider Surgery
PROC: (CPT 36589; principal; 2024-06-17 08:30)
DX: Z45.2 Encounter for adjustment and management of vascular access device (principal); M06.9 Rheumatoid arthritis, unspecified; E78.5 Hyperlipidemia, unspecified; I51.9 Heart disease, unspecified; M79.7 Fibromyalgia; G47.33 Obstructive sleep apnea (adult) (pediatric); Z95.1 Presence of aortocoronary bypass graft; Z79.82 Long term (current) use of aspirin; Z87.891 Personal history of nicotine dependence
CPT/HCPCS: 36590; 88300; J0690; J1100; J2250; J2405; J2704; J3010; J7120

== ENCOUNTER 2024-08-20 08:53 | Outpatient (CLI) | payer MEDICARE, SELFPAY ==
--- NOTE | ~2024-08-20 | MR_ITS ---
EXAMINATION: MR abdomen wo/w con DATE: 08/20/2024 11:41 INDICATION: Disorder of kidney and ureter. TECHNIQUE: Magnetic resonance imaging (MRI) of the abdomen was performed without and with 16 mL Multi Guilherme intravenous contrast. COMPARISON: None. FINDINGS: The liver, spleen, pancreas, and adrenal glands are normal. The gallbladder is absent. There is corti brigette thinning of the kidneys. There are cysts in the kidneys measuring up to 12 mm in the right. There is a 6 mm hemorrhagic cyst in left kidney. There are no dilated loops of bowel. There is a moderate- sized sliding hiatal hernia. There are no pathologically enlarged lymph nodes. There is no free intra peritoneal fluid. IMPRESSION: 1. Benign cysts in the kidneys. 2. Moderate-sized sliding hiatal hernia. Reviewed, dictated and finalized at location A. LAINT CLERK
== END 2024-08-20 08:54 | disposition home or self-care (01) ==
LOC: CHSIMG 08:54
PROVIDERS: PCP Family Medicine; Visit Provider Family Medicine
DX: N28.9 Disorder of kidney and ureter, unspecified (principal); N28.1 Cyst of kidney, acquired; K44.9 Diaphragmatic hernia without obstruction or gangrene
CPT/HCPCS: 74183; A9577

== ENCOUNTER 2024-09-22 16:19 | Outpatient (CLI) | payer MEDICARE, SELFPAY ==
--- NOTE | ~2024-09-22 | XR_ITS ---
[id number] Ordering provider: Florecita Moon MD History: . Z98.1 - Arthrodesis status/NO CURRENT COMPLAINTS . Comparison: None. FINDINGS: VERTEBRAL BODIES: Postoperative changes seen from C3 to C7. Otherwise, Normal height and alignment. N o visible fracture or subluxation. The dens is intact. DISK SPACES: Narrowing OF C5-C6 and C6-C7. Multilevel facet joint disease is noted. Multilevel uncov ertebral joint changes. PARASPINOUS SOFT TISSUES: No prevertebral soft tissue swelling. IMPRESSION: No acute osseous abnormality cervical spine. Postoperative changes with no hardware failure. Reviewed, dictated and finalized at location A. PRESIDENT QUALITY
== END 2024-09-22 16:20 | disposition home or self-care (01) ==
LOC: CHSIMG 16:21
PROVIDERS: PCP Family Medicine; Visit Provider Neurological Surgery
DX: Z98.1 Arthrodesis status (principal)
CPT/HCPCS: 72040

== ENCOUNTER 2025-03-25 08:32 | Outpatient (CLI) | payer MEDICARE, SELFPAY ==
--- OUTSIDE RECORDS SUMMARY | 2025-03-25 08:48 | XMS_ITS | Encounter Summary ---
Author Organization [facility] Healthcare Address [address] [place] [address] Care Team Providers Care Cvor Nurse Name Role Phone Nallely Liriano MD Primary Care Provider [phone] Encounter Details Date Type Department Care Team (Late st Contact Info) Description 11/26/2022 Telephone [facility] [address] [place] [address] Josephine Klein, RT Social History Tobacco Use Types Packs/Day Years Used Date Smoking Tobacco: Former Smokeless Tobacco: Never AUDIT-C Answer Date Recorded Q1: How often do you have a drink containing alc ohol? Monthly or less 11/21/2022 Q2: How many drinks containi ng alcohol do you have on a typical day when you are drinking? 1 or 2 11/21/2022 Q3: How often do you have si x or more drinks on one occasion? 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
--- OUTSIDE RECORDS SUMMARY | 2025-03-25 08:48 | XMS_ITS | Encounter Summary ---
Author Organization [facility] Healthcare Address [address] [place] [address] Care Team Providers Care Instant Powder Supervisor Name Role Phone No, Physician Primary Care Provider [phone] Nallely Liriano MD Primary Care Provider [phone] Encounter Details Date Type Department Care Team (Late st Contact Info) Description 02/14/2015 Orders Only [facility] Health Information Management [address] [place] [id number] Scanning, Provider Social History Tobacco Use Types Packs/Day Years Used Date Smoking Tobacco: Former Comments Unknown Sex and Gender Information Value Date Recorded Sex Assigned at Not on file 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 Gender Identity Not on file Sexual Orientation Not on file documented as of this encounter Plan of Treatment Not on file documented as of this encounter Procedures Procedure Name Priority Date/Time Associated Diagnosis Comments GI - RESULT 02/14/2015 documented in this encounter Results * GI - RESULT (02/14/2015) Anatomical Region Laterality Modality Other us Provider Scanning Final Result documented in this encounter Visit Diagnoses Not on filedocumented in this encounter Additional Health Concerns Infection Onset Date Last Indicated Resolved Time COVID: Suspected 01/22/2023 01/22/2023 01/22/2023 10:15 AM CDT documented as of this encounter Care Teams Instant Powder Supervisor Relationship Specialty Start Date End Date No, Physician PCP - General 11/08/22 11/20/22 Nallely Liriano MD PCP - General Family Practice 11/21/22 documented as of this encounter
--- OUTSIDE RECORDS SUMMARY | 2025-03-25 08:48 | XMS_ITS | Referral Summary ---
Author Organization [facility] [address] Address [address] [place] [address] Phone Care Team Providers Care Editing Clerk Name Role Phone Nallely Liriano MD Primary Care Provider [phone] Allergies Active Allergy Reactions Criticality Noted Date Comments Celecoxib Stomach upset Reaction: GI upset, Medications aspirin 81 mg chewable tablet Take 161 mg by mouth daily Active atorvastatin (LIPITOR) 20 mg tablet Take 1 tablet (20 mg total) by mouth daily 02/21/2017 Active chlorthalidone 25 mg tablet Take 40 mg by mouth daily 08/29/2022 Active carvediloL (COREG) 12.5 mg tablet Take 1 tablet (12.5 mg total) by mouth 2 (two) times a day 05/01/2022 Active potassium chloride ER (KLOR-CON) 10 mEq CR tablet Take 3 tablet/capsu le (30 mEq total) by mouth daily 10/24/2018 Active traMADoL (ULTRAM) 50 mg tablet Take 1 tablet (50 mg total) by mouth 2 (two) times a day as needed for pain 04/29/2017 Active cyclobenzaprine (FLEXERIL) 10 mg tablet Take 0.5 tablets (5 mg total) by mouth 2 (two) times a day as needed for muscle spasms (as needed) 10/24/2023 Active traZODone (DESYREL) 50 mg tablet Take 1 tablet (50 mg total) by mouth nightly 30 tablet 11/19/2023 Active omeprazole (PriLOSEC) 20 mg capsule TAKE 1 CAPSULE(20 MG) BY MOUTH DAILY 90 capsule 1 12/10/2023 Active sertraline (ZOLOFT) 100 mg tablet TAKE 2 TABLETS(200 MG) BY MOUTH DAILY 60 tablet 5 12/10/2023 Active Active Problems Problem Noted Date Diagnosed Date Insomnia 11/19/2023 Assessment & Plan (11/19/2023 1:56 PM POISER BALANCE): Recent. Sleep hygiene handout given Trial trazodone 50 mg HS prn. Risks/benefits and alternatives discussed Consider follow-up with sleep medicine given history of untreated NEDRA if ongoing Continue to monitor Rheumatoid arthritis involvi ng multiple sites, unspecified whether rheumatoid factor present 11/19/2023 Coronary artery disease invo lving [place] coronary artery of [place] heart with angina pectoris 11/19/2023 Preoperative examination 08/27/2023 Assessment & Plan (08/27/2023 4:37 PM POISER BALANCE): Preoperative physical exam performed today and within normal limits. Patient was evaluated by Cardiology on 08/21 and was determined to be of intermediate risk from cardiology standpoint given history of CAD, hypertension sleep apnea. Depression only other chronic condition which is stable. Labs ordered, will follow up results. Paperwork completed. Will keep follow-up scheduled for 12/07 Herpes zoster without complication 04/19/2023 Assessment & Plan (05/17/2023 2:03 PM CDT): Improved. Continue to monitor for complete resolution. Consider Shingles vaccine. F/u prn Assessment & Plan (04/19/2023 2:16 PM CDT): Acute. Valacyclovir 1000 mg t.i.d. x7 days. Risks/benefits and alternatives discussed. Continue to monitor symptoms. Keep scheduled follow-up Chronic low back pain 02/13/2023 Assessment & Plan (02/13/2023 12:58 PM CDT): - Chronic, ongoing. Likely from progressing OA vs RA - Will further evaluate with plain films L spine -Tylenol 500-1000mg q6h prn pain - Refer to Pain Management - Provided home exercises to complete - F/u prn Port-A-Cath in place 02/13/2023 Assessment & Plan (02/13/2023 12:58 PM CDT): In place without use for past 3 years. Will refer to general surgery for removal Acute non-recurrent maxillary sinusitis 01/23/20 Assessment & Plan (01/22/2023 10:32 AM CDT): Symptoms for 2-3 weeks. Tested negative for COVID and FLU in office today. Significant maxillary tenderness on exam, lungs clear. Likely sinusitis, will rx Doxycycline as directed. Use OTC meds as needed for cough. Discussed antihistamine use (zyrtec/eric) to help dry up mucous. Tylenol/Ibuprofen as needed for pain. Increase fluids (water) Cool mist humidifier at night Use sinus rinses to help flush bacteria and help with congestion. Encouraged honey, marshmallows, or chloraseptic to help coat throat. Call with any worsening or persistent symptoms. Medicare annual wellness visit, subsequent 11/21 Assessment & Plan (11/19/2023 1:55 PM POISER BALANCE): Annual Medicare wellness exam completed today. All questionnaires completed and reviewed with patient. No Concerns. BMI:28.9 Overweight Dietary and exercise recommendations given Routine screening labs ordered: Reviewed recent lab results Preventative screening ordered: Cologuard Routine vaccines recommended: PCV 20, COVID booster, shingles, Tdap POA paperwork mailed to patient for completion. RTC when completed. Medications refilled Referrals placed prn Assessment & Plan (11/21/2022 6:17 PM POISER BALANCE): Annual Medicare wellness exam completed today. All questionnaires completed and reviewed with patient. No Concerns. BMI:31.7 Obese Dietary and exercise recommendations given Routine screening labs ordered:request outside labs results Preventative screening ordered:DEXA. Request outside c scope report. Routine vaccines given: POA paperwork mailed to patient for completion. RTC when completed. Medications refilled Referrals placed prn Essential hypertension 11/21/2022 Assessment & Plan (11/19/2023 1:57 PM POISER BALANCE): Chronic and stable. Goal < 130/80 Continue all current medications Continue to follow-up with cardiology as instructed Will continue to monitor Assessment & Plan (08/27/2023 4:35 PM POISER BALANCE): Chronic and stable. Goal < 130/80 Continue all current medications Continue to follow-up with cardiology as instructed Will continue to monitor Assessment & Plan (05/17/2023 2:03 PM CDT): Chronic and stable. Goal < 130/80 Continue all current medications Continue to follow-up with cardiology as instructed Will continue to monitor Assessment & Plan (02/13/2023 12:55 PM CDT): - Mildly Elevated systolic today, stable on previous visits. Goal <130/80 - Continue all current medications - Will continue to monitor Assessment & Plan (11/21/2022 6:17 PM POISER BALANCE): Chronic and stable. Goal < 130/80 Continue all current medications Continue to follow-up with cardiology as instructed Will continue to monitor Mixed hyperlipidemia 11/21/2022 Assessment & Plan (08/27/2023 4:35 PM POISER BALANCE): Chronic and stable. Continue current medication. Will obtain labs today Assessment & Plan (02/13/2023 10:55 AM CDT): - Chronic and stable - Reviewed outside lipid panel - Continue current regimen Assessment & Plan (11/21/2022 6:17 PM POISER BALANCE): Chronic and stable. Continue current medication. 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 PHQ 2 score is 0. Continue current medications and monitor Assessment & Plan (11/21/2022 6:18 PM POISER BALANCE): Chronic and stable. PHQ 2 score 2. Minimal Continue sertraline 100 mg daily Follow-up 6 months Dyspnea 11/21/2022 Overview (11/21/2022): Ongoing. Physical exam WNL. 94%. Given smoking history, ?COPD vs deconditioning. Will request cards and pulm notes for review. PT referral for strengthening Assessment & Plan (02/13/2023 12:57 PM CDT): - Ongoing. Normal on physical exam. SpO2 93% - DDx smoking hx, possible COPD vs deconditioning - Reviewed Cards note, cleared from their perspective - Refer to Pulm for PFTs - Continue to monitor symptoms, f/u 3 months Immunizations Immunization Administration Dates Next Due Influenza, Quad, Adjuvantated, Intramuscular Influenza, Quadrivalent, Spl it, Preservative Free, Intramuscular 07/16/2017 Influenza, Trivalent, IM (MDV) 07/16/2017 Pneumococcal Conjugate PCV 13 07/16/2017 Social History Tobacco Use Types Packs/Day Years Used Date Smoking Tobacco: Former Smokeless Tobacco: Never Tobacco Cessation:Counseling Given: Not Answered AUDIT-C Answer Date Recorded Q1: How often do you have a drink containing alc ohol? Monthly or less 11/19/2023 Q2: How many drinks containi ng alcohol do you have on a typical day when you are drinking? 1 or 2 11/19/2023 Q3: How often do you have si x or more drinks on one occasion? Never 11/19/2023 PHQ-2 Answer Date Recorded PHQ-2 Total Score (If total score is 3 or more points, staff should administer the PHQ-9) 0 11/19/2023 Personal Safety Answer Date Recorded Getting School Help Needed Not on file 09/23 Comments Unknown Sex and Gender Information Value Date Recorded Sex Assigned at Not on file Legal Sex Female 2:52 AM POISER BALANCE Gender Identity Not on file Sexual Orientation Not on file Last Filed Vital Signs Vital Sign Reading Time Taken Comments Blood Pressure 108/60 11/19/2023 12:54 PM POISER BALANCE Pulse 64 11/19/2023 12:54 PM POISER BALANCE Temperature 36.4 C (97.5 F) 11/19/2023 12:54 PM POISER BALANCE Respiratory Rate 20 11/19/2023 12:54 PM POISER BALANCE Oxygen Saturation 95% 11/19/2023 12:54 PM POISER BALANCE Inhaled Oxygen Concentration - - Weight 76.3 kg (168 lb 3.2 oz) 11/19/2023 12:54 PM POISER BALANCE Height 162.6 cm (5' 4.02) 11/19/2023 12:54 PM C Body Mass Index 28.86 11/19/2023 12:54 PM POISER BALANCE Plan of Treatment Not on file Procedures Procedure Name Priority Date/Time Associated Diagnosis Comments DEXA AXIAL SKELETON BONE DENSITY 1 OR MORE SITES Schedule Routine, Read Routine (OP Routine) 11/27/2022 2:08 PM POISER BALANCE Menopause from Last 3 Months or Most Recently Relevant to Health Maintenance Results * Dexa Axial Skeleton Bone Density 1 or 2 Site (11/27/2022 2:08 PM POISER BALANCE) Anatomical Region Laterality Modality Body N/A Other 11/27/2022 8:26 PM POISER BALANCE Narrative 11/27/2022 8:29 PM POISER BALANCE EXAM DESCRIPTION: DEXA AXIAL SKELETON BONE DENSITY 1 OR MORE SITES REASON FOR STUDY: 77 y/o year old F with given history of screening. 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 FINDINGS: AP LUMBAR SPINE L1-L4: Total BMD is 0.955 g/cm2 T-score is -0.8 LEFT HIP: Total BMD is 0.884 g/cm2 T-score is -0.5 Femoral neck BMD is 0.785 g/cm2 T-score is -0.6 FRAX: FRAX not reported due to T-scores of hip, femoral neck and/or spine being at or above -1.0 (Normal). IMPRESSION: Based on the lumbar spine bone mineral density (T-score -0.8 ) the patient has normal bone mass . REFERENCE: Bone mineral density: Normal (T-score above or = -1.0) Low bone mass (T-score between -1.0 and -2.5) replaces the previously used term osteopenia Osteoporosis (T-score = or below -2.5) Medical evaluation for secondary causes of low bone mineral density may be appropriate. FRAX is a World Health Organization validated fracture risk assessment tool that calculates a person's 10 year probability of a major osteoporosis related fracture and hip fracture. According to the National Osteoporosis Foundation guidelines, postmenopausal women and men age 50 or older with low bone mass and a 10 year probability of a major osteoporosis related fracture = or greater than 20% or a 10 year probability of a hip fracture = or greater than 3% should be considered for treatment. For further information, including treatment recommendations, please refer to the 2013 ISCD Official Positions (http://www.iscd.org) and the NOF's Clinician's Guide to Prevention and Treatment of Osteoporosis (http://www.nof.org/professionals/clinical-guidelines) THIS IS AN ELECTRONICALLY VERIFIED FINAL REPORT 11/27/2022 8:29 PM - Electronically signed by Osvaldo Cabral M.D. MF: [email or web address] Report ID: [id number] Reading Location: [place] [address] Procedure Note Osvaldo Cabral MD - 11/27/2022 EXAM DESCRIPTION: DEXA AXIAL SKELETON BONE DENSITY 1 OR MORE SITES REASON FOR STUDY: 77 y/o year old F with given history ofscreening. 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 FINDINGS: AP LUMBAR SPINE L1-L4: Total BMD is 0.955 g/cm2 T-score is -0.8 LEFT HIP: Total BMD is 0.884 g/cm2 T-score is -0.5 Femoral neck BMD is 0.785 g/cm2 T-score is -0.6 FRAX: FRAX not reported due to T-scores of hip, femoral neck and/or spine beingat or above -1.0 (Normal). IMPRESSION: Based on the lumbar spine bone mineral density (T-score -0.8 ) the patient has normal bone mass . REFERENCE: Bone mineral density: Normal (T-score above or = -1.0) Low bone mass (T-score between -1.0 and -2.5) replaces thepreviously used term osteopenia Osteoporosis (T-score = or below -2.5) Medical evaluation for secondary causes of low bone mineral density may be appropriate. FRAX is a World Health Organization validated fracture risk assessmenttool that calculates a person's 10 year probability of a major osteoporosisrelated fracture and hip fracture. According to the National OsteoporosisFoundation guidelines, postmenopausal women and men age 50 or older with low bonemass and a 10 year probability of a major osteoporosis related fracture = or greater than 20% or a 10 year probability of a hip fracture = or greaterthan 3% should be considered for treatment. For further information, including treatment recommendations, please referto the 2013 ISCD Official Positions (http://www.iscd.org) and the NOF's Clinician's Guide to Prevention and Treatment of Osteoporosis (http://www.nof.org/professionals/clinical-guidelines) THIS IS AN ELECTRONICALLY VERIFIED FINAL REPORT 11/27/2022 8:29 PM - Electronically signed by Osvaldo Cabral M.D. MF: [email or web address] Report ID: [id number] Reading Location: [place] [address] Nallely Liriano MD IMG DXA PROCEDURES Final Res ult from Last 3 Months or Most Recently Relevant to Health Maintenance Insurance [facility] [employer] [place] Care Teams Editing Clerk Relationship Specialty Start Date End Date Nallely Liriano MD PCP - General Family Practice 11/21/22
--- OUTSIDE RECORDS SUMMARY | 2025-03-25 08:48 | XMS_ITS | Clinical Summary ---
Author Organization [facility] Address [address] [facility], [place] [address] Phone Care Team Providers Care Accredited Farm Manager Name Role Phone Aldo Ellison DO Primary Care Provider [phone] Allergies No known active allergies Medications hydroCHLOROthiaz elizabeth 25 MG Tablet 7 Active naproxen (NAPROSYN) 500 MG Tablet 7 Active tiZANidine (ZANAFLEX) 4 MG Tablet 7 Active verapamil (CALAN-SR) 240 MG Tablet Controlled Release 7 Active amLODIPine (NORVASC) 5 MG Tablet 7 Active atorvastatin (LIPITOR) 20 MG Tablet 7 Active gabapentin (NEURONTIN) 600 MG Tablet 7 Active hydroxychloroqui ne (PLAQUENIL) 200 MG Tablet 7 Active isosorbide mononitrate (IMDUR) 30 MG TABLET SR 24 HR 7 Active methotrexate 2.5 MG Tablet 7 Active omeprazole (PRILOSEC) 20 MG CAPSULE DELAYED RELEASE 7 Active traMADol (ULTRAM) 50 MG Tablet 7 Active Cholecalciferol (VITAMIN D PO) Take by mouth. Active VITAMIN E PO Take by mouth. Ac tive Multiple Vitamins-Mineral s (MULTIVITAMIN PO) Take by mouth. Activ e [place]-3 Fatty Acids (FISH OIL PO) Take by mouth. Activ e Cyanocobalamin (B-12 COMPLIANCE INJECTION IJ) by Injection route. monthly Active fluticasone (FLONASE) 50 MCG/ACT Suspension 1-2 Sprays by Nasal route daily. Use in each nostril as directed. Active Loratadine (CLARITIN PO) Take by mouth. A ctive inFLIXimab (REMICADE) 100 MG Recon SolnIndications: Pustular Psoriasis,every 5 weeks 5 mg/kg by Intravenous route once. FOLLOW STANDING ORDER PROTOCOL Active carvedilol (COREG) 6.25 MG Tablet Take by mouth. 8 Active Active Problems Problem Noted Date Diagnosed Date NEDRA (obstructive sleep apnea) 11/07/2016 Non morbid obesity due to excess calories 2016 Essential (primary) hypertension 11/07/2016 Social History Tobacco Use Types Packs/Day Years Used Date Smoking Tobacco: Former Cigarettes 1 20 Smokeless Tobacco: Never Tobacco Cessation:Counseling Given: Yes Alcohol Use Standard Drinks/Week Comments No 0 (1 standard drink = 0.6 oz pur e alcohol) Comments No Sex and Gender Information Value Date Recorded Sex Assigned at Not on file Legal Sex Female 11:07 AM MANAGER NET Gender Identity Not on file Sexual Orientation Not on file Last Filed Vital Signs Vital Sign Reading Time Taken Comments Blood Pressure 118/80 05/21/2018 1:35 PM CDT Pulse 58 05/21/2018 1:35 PM CDT Temperature 36.4 C (97.6 F) 05/01/2017 1:43 PM CDT Respiratory Rate 16 05/01/2017 1:43 PM CDT Oxygen Saturation 96% 05/21/2018 1:35 PM CDT Inhaled Oxygen Concentration - - Weight 87.1 kg (192 lb) 05/21/2018 1:35 PM CDT Height 162.6 cm (5' 4) 05/21/2018 1:35 PM CDT Body Mass Index 32.96 05/21/2018 1:35 PM CDT Plan of Treatment Health Maintenance Due Date Last Done Comments Hepatitis C Virus (HCV) Screening 1945 TdaP Immunization 1945 Zoster Immunization (1 of 2) 1966 Pneumococcal Immunization (5 0+ years) (2 of 2 - PPSV23) 07/16/2018 07/16/2017 Respiratory Syncytial Virus (RSV) Immunization (Adult) (1 - 1-dose 75+ series) 2022 SARS-COV-2 Immunization (4 - 2023- season) 2024 09/13/2021, 12/12/2020, 11/14/2020 Influenza Immunization (Seas on Ended) 2025 07/16/2017 Pneumococcal Immunization Combined Discontinued 07/16/2017 Hepatitis B Immunization Aged Out No longer eligible based on patient's age to complete this topic Human Papillomavirus (HPV) Immunization Aged Out No longer eligible based on patient's age to complete this topic Meningococcal Immunization (ACWY) Aged Out No longer eligible based on patient's age to complete this topic Rotavirus Immunization Aged Out No lo nger eligible based on patient's age to complete this topic Insurance MEDICARE [employer] GENERIC Care Teams Accredited Farm Manager Relationship Specialty Start Date End Date Aldo Ellison DO [address] [place] [address] PCP - General Admissions Specialist 11/07/16
--- OUTSIDE RECORDS SUMMARY | 2025-03-25 08:48 | XMS_ITS | Clinical Summary ---
Author Organization [facility] [place] [address] Address [address] [place] [address] Phone Care Team Providers Care Moulder Operator Name Role Phone Nallely Liriano MD Primary Care Provider [phone] Allergies Active Allergy Reactions Criticality Noted Date [...] 11/19/2023 Assessment & Plan (11/19/2023 1:56 PM MANAGER FAMILY): Recent. Sleep hygiene handout given Trial trazodone 50 mg HS prn. Risks/benefits and alternatives discussed Consider follow-up with sleep medicine given history of untreated NEDRA if ongoing Continue to monitor Rheumatoid arthritis involvi ng multiple sites, unspecified whether rheumatoid factor present 11/19/2023 Coronary artery disease invo lving [place] coronary artery of [place] heart with angina pectoris 11/19/2023 Preoperative examination 08/27/2023 Assessment & Plan (08/27/2023 4:37 PM MANAGER FAMILY): Preoperative physical exam performed today and within [...] 11/21 Assessment & Plan (11/19/2023 1:55 PM MANAGER FAMILY): Annual Medicare wellness exam completed today. All [...] prn Assessment & Plan (11/21/2022 6:17 PM MANAGER FAMILY): Annual Medicare wellness exam completed today. All [...] 11/21/2022 Assessment & Plan (11/19/2023 1:57 PM MANAGER FAMILY): Chronic and stable. Goal < 130/80 Continue all current medications Continue to follow-up with cardiology as instructed Will continue to monitor Assessment & Plan (08/27/2023 4:35 PM MANAGER FAMILY): Chronic and stable. Goal < 130/80 Continue [...] monitor Assessment & Plan (11/21/2022 6:17 PM MANAGER FAMILY): Chronic and stable. Goal < 130/80 Continue all current medications Continue to follow-up with cardiology as instructed Will continue to monitor Mixed hyperlipidemia 11/21/2022 Assessment & Plan (08/27/2023 4:35 PM MANAGER FAMILY): Chronic and stable. Continue current medication. Will obtain labs today Assessment & Plan (02/13/2023 10:55 AM CDT): - Chronic and stable - Reviewed outside lipid panel - Continue current regimen Assessment & Plan (11/21/2022 6:17 PM MANAGER FAMILY): Chronic and stable. Continue current medication. Will obtain outside lab results and adjust meds prn Current mild episode of major depressive disorde r 11/21/2022 Assessment & Plan (11/19/2023 1:57 PM MANAGER FAMILY): Chronic and stable. PHQ 2 score is 0. Continue current medications and monitor Assessment & Plan (11/21/2022 6:18 PM MANAGER FAMILY): Chronic and stable. PHQ 2 score 2. [...] (MDV) 07/16/2017 Pneumococcal Conjugate PCV 13 07/16/2017 Surgical History Surgery Date Site/Laterality Comments [place] CHOLECYSTECTOMY Cholecystectomy - (Added by TW Conv) HI DELIVERY ONLY Section - (Added by TW Conv) OOPHORECTOMY Oophorotomy - (Added by TW Conv) Medical History Medical History Date Comments Personal history of other di seases of the circulatory system History of hypertension - (A dded by TW Conv) Rheumatoid arthritis (HCC) Rheum atoid arthritis - (Added by TW Conv) Personal history of other di seases of the musculoskeletal system and connective tissue History of Sjogren's disease - (Added by TW Conv) Personal history of other di seases of the digestive system History of esophageal reflux - (Added by TW Conv) Personal history of other di seases of the musculoskeletal system and connective tissue History of fibromyositis - ( Added by TW Conv) Personal history of other me ntal and behavioral disorders History of depression - (Add ed by TW Conv) Family History Medical History Relation Name Comments Heart disease Other Heart Disease - (Added by TW Conv) Hypertension Other Hypertension - (Added by TW Conv) Relation Name Status Comments Other Social History Tobacco Use Types Packs/Day Years [...] on file Legal Sex Female 2:52 AM MANAGER FAMILY Gender Identity Not on file Sexual Orientation Not on file Obstetrics History Last Filed Vital Signs Vital Sign Reading Time Taken Comments Blood Pressure 108/60 11/19/2023 12:54 PM MANAGER FAMILY Pulse 64 11/19/2023 12:54 PM MANAGER FAMILY Temperature 36.4 C (97.5 F) 11/19/2023 12:54 PM MANAGER FAMILY Respiratory Rate 20 11/19/2023 12:54 PM MANAGER FAMILY Oxygen Saturation 95% 11/19/2023 12:54 PM MANAGER FAMILY Inhaled Oxygen Concentration - - Weight 76.3 kg (168 lb 3.2 oz) 11/19/2023 12:54 PM MANAGER FAMILY Height 162.6 cm (5' 4.02) 11/19/2023 12:[address] Body Mass Index 28.86 11/19/2023 12:54 PM MANAGER FAMILY Plan of Treatment Health Maintenance Due Date Last Done Comments Hepatitis C Screening 1945 DTaP/Tdap/Td Vaccine (1 - Tdap) 1958 Hepatitis B Screening 1965 Zoster Vaccine (1 of 2) 1997 Pneumococcal vaccine 65+ (2 of 2 - PPSV23) 07/16/2018 07/16/2017 Covid-19 Vaccine ( season) 2024 09/13/2021, 12/12/2020, 11/14/2020 Depression Screening 11/19/2024 11/19/2023, 11/21/19 23 Fall Risk Assessment 11/19/2024 11/19/2023, 11/21/19 23 Well Visit 65+ 11/19/2024 11/19/2023, 11/21/2022 Osteoporosis Screening-Bone Density Scan 11/27/2024 11/27/2022 Influenza Vaccine (Season Ended) 2025 08/30/2023, 07/16/2017, 07/16/2017 Procedures Procedure Name Priority Date/Time Associated Diagnosis Comments DEXA AXIAL SKELETON BONE DENSITY 1 OR MORE SITES Schedule Routine, Read Routine (OP Routine) 11/27/2022 2:08 PM MANAGER FAMILY Menopause from Last 3 Months or Most Recently Relevant to Health Maintenance Results * Dexa Axial Skeleton Bone Density 1 or 2 Site (11/27/2022 2:08 PM MANAGER FAMILY) Anatomical Region Laterality Modality Body N/A Other 11/27/2022 8:26 PM MANAGER FAMILY Narrative 11/27/2022 8:29 PM MANAGER FAMILY EXAM DESCRIPTION: DEXA AXIAL SKELETON BONE DENSITY 1 OR MORE SITES REASON FOR STUDY: 77 y/o year old F with given history of screening. 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 MF: DUNCAN Report ID: [id number] Reading Location: [id number] Procedure Note Osvaldo Cabral MD - 11/27/2022 EXAM DESCRIPTION: DEXA AXIAL SKELETON BONE DENSITY 1 OR MORE SITES REASON FOR STUDY: 77 y/o year old F with given history ofscreening. Postmenopausal Coil Shaper/Model: [employer] SL (S/N [id number]) CLINICAL INFORMATION: Current height: 64 inches Maximum [...] Osvaldo Cabral M.D. MF: DUNCAN Report ID: [id number] Reading Location: [place] [address] Nallely Liriano MD IMG DXA PROCEDURES Final Res ult from Last 3 Months or Most Recently Relevant to Health Maintenance Insurance [facility] [employer] [facility] ADVANTRA Care Teams Moulder Operator Relationship Specialty Start Date End Date Nallely Liriano MD PCP - General Family Practice 11/21/22
[2025-03-25 10:36] LABS: Cholesterol 172 mg/dL (0-200); HDL Direct 39 mg/dL; LDL Cholesterol Calculated 84 mg/dL (<130); Triglycerides 246 mg/dL (<150)
== END 2025-03-25 08:33 | disposition home or self-care (01) ==
LOC: CHSLAB 08:36
PROVIDERS: PCP Family Medicine
DX: I25.119 Atherosclerotic heart disease of native coronary artery with unspecified angina pectoris (principal)
CPT/HCPCS: 36415; 80061

== ENCOUNTER 2025-04-27 14:56 | Outpatient (CLI) | payer MEDICARE, SELFPAY ==
--- NOTE | ~2025-04-27 | XR_ITS ---
Lumbosacral Spine: AP and lateral views Clinical History: Pain Findings: The normal lordotic curve is maintained. No fracture seen. There is 7 mm anterolisthesis of L4 over L5. There is severe degenerative disc narrowing at L5-S1. There is advanced facet arthropath y throughout the lumbar spine. There are extensive atherosclerotic calcifications of the aorta. The sacroiliac joints are normally outlined. Impression: Moderate degenerative spondylosis. 7 mm anterolisthesis of L4 over L5. Reviewed, dictated and finalized at location M. Impression: Moderate degenerative spondylosis. 7 mm anterolisthesis of L4 over L5.
--- NOTE | ~2025-04-27 | XR_ITS ---
Thoracic spine: Clinical Indication: Back pain AP and lateral views were performed. No fracture is seen. There is normal alignment of the vertebrae. Multilevel mild degenerative disc n arrowing noted. Paravertebral soft tissues appear normal. Impression: Multilevel mild degenerative disc narrowing throughout the thoracic spine. Reviewed, dictated and finalized at [facility]. Impression: Multilevel mild degenerative disc narrowing throughout the thoracic spine.
--- NOTE | ~2025-04-27 | XR_ITS ---
Cervical Spine: AP, lateral, open-mouth views Clinical History: Pain COMPARISON: 09/22/2024 Findings: Stable posterior fusion from C3 through C7. Stable mild to moderate degenerative change, wo rst in the lower cervical spine. Stable facet arthropathy. The intervertebral disc spaces are well ma intained. Pre-vertebral soft tissues are unremarkable. Impression: Stable degenerative spondylosis. Stable posterior fusion from C3 through C7. Reviewed, dictated and finalized at location . Impression: Stable degenerative spondylosis. Stable posterior fusion from C3 through C7.
--- OUTSIDE RECORDS SUMMARY | 2025-04-27 15:01 | XMS_ITS | Encounter Summary ---
Author Organization [facility] Address [address] [place] [address] Care Team Providers Care Kitchen Assistant Name Role Phone Nallely Liriano MD Primary Care Provider [phone] Encounter Details Date Type Department Care Team (Late st Contact Info) Description 11/26/2022 Telephone [facility] [address] [place] [address] Josephine Klein, RT Social History Tobacco Use [...] on file Legal Sex Female 2:52 AM RN TRANSITIONAL Gender Identity Not on file Sexual Orientation Not on file documented as of this encounter Plan of Treatment Not on file documented as of this encounter Visit Diagnoses Not on filedocumented in this encounter Additional Health Concerns Infection Onset Date Last Indicated Resolved Time COVID: Suspected 01/22/2023 01/22/2023 01/22/2023 10:15 AM CDT documented as of this encounter Care Teams Kitchen Assistant Relationship Specialty Start Date End Date Nallely Liriano MD PCP - General Family Practice 11/21/22 documented as of this encounter
--- OUTSIDE RECORDS SUMMARY | 2025-04-27 15:01 | XMS_ITS | Encounter Summary ---
Author Organization [facility] Address [address] [place] [address] Care Team Providers Care Gas Well Drilling Manager Name Role Phone Aldo Ellison DO Primary Care Provider [phone] Radhika Santana MD, [facility] Unavailable [phone] Leonid Cullen MD Unavailable Unavailable Federico Garner MD Unavailable [phone] Nallely Liriano MD Primary Care Provider [phone] Lana Dietz APRN BPM DEVELOPER-C Unavailable Nallely Liriano MD Primary Care Provider [phone] Florecita Moon MD Unavailable [phone] Yaakov Bocanegra MD Unavailable [phone] Encounter Details Date Type Department Care Team (Late st Contact Info) Description 05/16/2018 Abstract [facility] [address] [place] [address] Federico Garner MD [address] [place] [address] Social History Tobacco Use Types Packs/Day Years Used Date Smoking Tobacco: Former Cigarettes Q uit: 1993 Smokeless Tobacco: Never Comments Unknown Sex and Gender Information Value Date Recorded Sex Assigned at Female 03/16/2025 9:28 AM CDT Legal Sex Female 11:34 PM CDT Gender Identity Not on file Sexual Orientation Not on file 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 Not on file Not on file documented as of this encounter Plan of Treatment Upcoming Encounters Date Type Department Care Team (Late st Contact Info) Description 03/22/2026 10:00 AM CDT [facility] [address] [place] [address] [place] [id number] Yaakov Bocanegra MD [address] [facility] [address] [place] [address] documented as of this encounter Procedures Procedure Name Priority Date/Time Associated Diagnosis Comments MAGNESIUM (OUTSIDE LAB) Routine 05/14/2018 BASIC METABOLIC PANEL Routine 05/14/2018 documented in this encounter Results * MAGNESIUM (OUTSIDE LAB) (05/14/2018) MAGNESIUM 1.7 05/14/2018 [facility] Abstract LAB-OUTSIDE/ABSTRACTED Final Result * (ABNORMAL) BASIC METABOLIC PANEL (05/14/2018) SODIUM S/P/B 141 POTASSIUM S/P/B 3.7 CO2 30 CHLORIDE S/P/B 103 GLUCOSE 94 mg/dL CALCIUM S/P/B 8.9 BUN 16 CREATININE S/P/B 1.04(A) 0.5 - 1.0 EGFR AFR. AMER. 56 <=90 05/14/2018 [facility] Abstract LABORATORY Final Result documented in this encounter Visit Diagnoses Not on filedocumented in this encounter Care Teams Gas Well Drilling Manager Relationship Specialty Start Date End Date Aldo Ellison DO PCP - General FAMILY PRACTICE 04/03/16 11/29/22 Nallely Liriano MD [address] [place] [address] PCP - General FAMILY PRACTICE 11/30/22 11/30/22 Nallely Liriano MD [address] [address] PCP - General FAMILY PRACTICE 08/21/23 Tayler Garrido MD CARDIOVASCULAR DISEASE 02/28/17 12/15/19 Leonid Cullen MD SURGERY 05/01/17 12/15/19 Federico Garner MD [address] [place] [address] Staples Field Education Director CARDIOVASCULAR DISEASE 02/19/18 11/25/24 Lana Dietz, THERMODYNAMIC PHYSICIST, BPM DEVELOPER-C [address] [facility] [address] [place] [address] NURSE PRACTITIONER 08/21/23 Florecita Moon MD [address] [facility] [address] [place] [address] Physician NEUROLOGICAL SURGERY 08/21/23 Yaakov Bocanegra MD [address] [facility] [address] [place], [place] [address] Physician INTERVENTIONAL CARDIOLOGY 12/18/24 Nallely Liriano MD [address] [place] [address] Physician INTERNAL MEDICINE 11/26/22 11/29/22 documented as of this encounter
--- OUTSIDE RECORDS SUMMARY | 2025-04-27 15:01 | XMS_ITS | Clinical Summary ---
Author Organization [facility] [place] [address] Address [address] [place] [address] Phone Care Team Providers Care Flap Maker Name Role Phone Nallely Liriano MD Primary Care Provider [phone] Allergies Active Allergy Reactions Criticality Noted Date [...] 11/19/2023 Assessment & Plan (11/19/2023 1:56 PM STATISTICAL MODELER): Recent. Sleep hygiene handout given Trial trazodone 50 mg HS prn. Risks/benefits and alternatives discussed Consider follow-up with sleep medicine given history of untreated NEDRA if ongoing Continue to monitor Rheumatoid arthritis involvi ng multiple sites, unspecified whether rheumatoid factor present 11/19/2023 Coronary artery disease invo lving [place] coronary artery of [place] heart with angina pectoris 11/19/2023 Preoperative examination 08/27/2023 Assessment & Plan (08/27/2023 4:37 PM STATISTICAL MODELER): Preoperative physical exam performed today and within [...] 11/21 Assessment & Plan (11/19/2023 1:55 PM STATISTICAL MODELER): Annual Medicare wellness exam completed today. All [...] prn Assessment & Plan (11/21/2022 6:17 PM STATISTICAL MODELER): Annual Medicare wellness exam completed today. All [...] 11/21/2022 Assessment & Plan (11/19/2023 1:57 PM STATISTICAL MODELER): Chronic and stable. Goal < 130/80 Continue all current medications Continue to follow-up with cardiology as instructed Will continue to monitor Assessment & Plan (08/27/2023 4:35 PM STATISTICAL MODELER): Chronic and stable. Goal < 130/80 Continue [...] monitor Assessment & Plan (11/21/2022 6:17 PM STATISTICAL MODELER): Chronic and stable. Goal < 130/80 Continue all current medications Continue to follow-up with cardiology as instructed Will continue to monitor Mixed hyperlipidemia 11/21/2022 Assessment & Plan (08/27/2023 4:35 PM STATISTICAL MODELER): Chronic and stable. Continue current medication. Will obtain labs today Assessment & Plan (02/13/2023 10:55 AM CDT): - Chronic and stable - Reviewed outside lipid panel - Continue current regimen Assessment & Plan (11/21/2022 6:17 PM STATISTICAL MODELER): Chronic and stable. Continue current medication. Will obtain outside lab results and adjust meds prn Current mild episode of major depressive disorde r 11/21/2022 Assessment & Plan (11/19/2023 1:57 PM STATISTICAL MODELER): Chronic and stable. PHQ 2 score is 0. Continue current medications and monitor Assessment & Plan (11/21/2022 6:18 PM STATISTICAL MODELER): Chronic and stable. PHQ 2 score 2. [...] 07/16/2017 Surgical History Surgery Date Site/Laterality Comments [place] CHOLECYSTECTOMY Cholecystectomy - (Added by TW Conv) [place] DELIVERY ONLY Section - (Added by TW [...] on file Legal Sex Female 2:52 AM STATISTICAL MODELER Gender Identity Not on file Sexual Orientation Not on file Obstetrics History Last Filed Vital Signs Vital Sign Reading Time Taken Comments Blood Pressure 108/60 11/19/2023 12:54 PM STATISTICAL MODELER Pulse 64 11/19/2023 12:54 PM STATISTICAL MODELER Temperature 36.4 C (97.5 F) 11/19/2023 12:54 PM STATISTICAL MODELER Respiratory Rate 20 11/19/2023 12:54 PM STATISTICAL MODELER Oxygen Saturation 95% 11/19/2023 12:54 PM STATISTICAL MODELER Inhaled Oxygen Concentration - - Weight 76.3 kg (168 lb 3.2 oz) 11/19/2023 12:54 PM STATISTICAL MODELER Height 162.6 cm (5' 4.02) 11/19/2023 12:[address] Body Mass Index 28.86 11/19/2023 12:54 PM STATISTICAL MODELER Plan of Treatment Health Maintenance Due Date [...] Read Routine (OP Routine) 11/27/2022 2:08 PM STATISTICAL MODELER Menopause from Last 3 Months or Most Recently Relevant to Health Maintenance Results * Dexa Axial Skeleton Bone Density 1 or 2 Site (11/27/2022 2:08 PM STATISTICAL MODELER) Anatomical Region Laterality Modality Body N/A Other 11/27/2022 8:26 PM STATISTICAL MODELER Narrative 11/27/2022 8:29 PM STATISTICAL MODELER EXAM DESCRIPTION: DEXA AXIAL SKELETON BONE DENSITY 1 OR MORE SITES REASON FOR STUDY: 77 y/o year old F with given history of screening. Postmenopausal Assembler Installer General/Model: Scripted SL (S/N [id number]) CLINICAL INFORMATION: Current height: 64 inches Maximum [...] Osvaldo Cabral M.D. MF: DUNCAN Report ID: [id number] Reading Location: [id number] Procedure Note Osvaldo Cabral MD - 11/27/2022 EXAM DESCRIPTION: DEXA AXIAL SKELETON BONE DENSITY 1 OR MORE SITES REASON FOR STUDY: 77 y/o year old F with given history ofscreening. Postmenopausal Assembler Installer General/Model: Scripted SL (S/N [id number]) CLINICAL INFORMATION: Current height: 64 inches Maximum [...] Osvaldo Cabral M.D. MF: DUNCAN Report ID: [id number] Reading Location: [place] [address] Nallely Liriano MD IMG DXA PROCEDURES Final Res ult from Last 3 Months or Most Recently Relevant to Health Maintenance Insurance [facility] [employer] [facility] [employer] Care Teams Flap Maker Relationship Specialty Start Date End Date Nallely Liriano MD PCP - General Family Practice 11/21/22
--- OUTSIDE RECORDS SUMMARY | 2025-04-27 15:01 | XMS_ITS | Clinical Summary ---
Author Organization [facility] Address [address] [facility] [place] [address] Phone Care Team Providers Care Sugarcane Planter Name Role Phone Aldo Ellison DO Primary Care Provider [phone] Allergies No known active allergies Medications hydroCHLOROthiaz [...] (MULTIVITAMIN PO) Take by mouth. Activ e [place]-3 Fatty Acids (FISH OIL PO) Take by [...] on file Legal Sex Female 11:07 AM VOCAL MUSIC TEACHER Gender Identity Not on file Sexual Orientation [...] season) 2024 09/13/2021, 12/12/2020, 11/14/2020 Influenza Immunization (#1) 2025 07/16/2017 Pneumococcal Immunization Combined Discontinued 07/16/2017 [...] age to complete this topic Insurance MEDICARE Member Subscriber Plan / Payer (Ef fective 2012-Present) Name:Cathy Guerra Member ID:[id number] Relation to Subscriber:Self Name:CATHY GUERRA Subscriber ID:[id number] Payer ID:[id number] Group ID:Not on file Type:Not on file Address: [facility] [address] [facility] [place]e [facility] [place] [address] [employer] GENERIC Care Teams Sugarcane Planter Relationship Specialty Start Date End Date Aldo Ellison DO [address] [place] [address] PCP - General Production Shift Supervisor 11/07/16
--- OUTSIDE RECORDS SUMMARY | 2025-04-27 15:01 | XMS_ITS | Continuity of Care Document ---
Author Organization [facility] Address [address] [facility] [address] [place] [address] Insurance Providers Payer Plan Claims Address Claims Phone Policy Number Group Number Relation Employer Guarantor Name Guarantor Guarantor Address Guarantor Phone MEDIC ARE [address], [facility], [place] [address] tel:[phone] Self Cathy Worley 1945 [address] [place] [address] [employer]ME R[employer] GENER IC [address], [place] [id number] Self Cathy Worley [address], [place] [id number] [employer] [address], [place] [address] tel:[phone] Self Cathy Worley 1945 [address] [place] [address] Problems Condition ICD9 code ICD10 code SNOMED code Start Date End Date S tatus Encounter for adjustment and management of vascular access device Z45.2 Wo rking Other acute postprocedural pain G89.18 Worki ng Disorder of kidney and ureter, unspecified N28.9 Results No Results Allergies, adverse reactions, alerts No known allergies and adverse reactions Medications No administered medications reported Vital Signs No vital signs reported Social History No smoking Hx information available
--- OUTSIDE RECORDS SUMMARY | 2025-04-27 15:01 | XMS_ITS | Encounter Summary ---
Author Organization [facility] Address [address] [place] [address] Care Team Providers Care Guest Service Agent Name Role Phone No, Physician Primary Care Provider [phone] Nallely Liriano MD Primary Care Provider Encounter Details Date Type Department Care Team (Late st Contact Info) Description 02/14/2015 Orders Only [facility] Health Information Management [address] [place] [id number] Scanning, Provider Social History Tobacco Use Types Packs/Day Years Used Date Smoking Tobacco: Former Comments Unknown Sex and Gender Information Value Date Recorded Sex Assigned at Not on file Legal Sex Female 2:52 AM TV PRODUCTION ASSISTANT Gender Identity Not on file Sexual Orientation [...] documented as of this encounter Care Teams Guest Service Agent Relationship Specialty Start Date End Date No, Physician PCP - General 11/08/22 11/20/22 Nallely Liriano MD PCP - General Family Practice 11/21/22 documented as of this encounter
--- OUTSIDE RECORDS SUMMARY | 2025-04-27 15:01 | XMS_ITS | Encounter Summary ---
Author Organization [facility] Address [address] [place] [address] Care Team Providers Care Dry Sand Molder Name Role Phone Aldo Ellison DO Primary Care Provider [phone] Radhika Santana MD, Tayler Unavailable [phone] Leonid Cullen MD Unavailable Unavailable Federico Garner MD Unavailable [phone] Nallely Liriano MD Primary Care Provider [phone] Lana Dietz APRN DENTAL RESIDENT-C Unavailable Nallely Liriano MD Primary Care Provider [phone] Florecita Moon MD Unavailable [phone] Yaakov Bocanegra MD Unavailable [phone] Reason for Visit * Reason Onset Date Comments Results 04/05/2017 Encounter Details Date Type Department Care Team (Late st Contact Info) Description 04/05/2017 Results Notification [facility] [address] [place] [phone] Tayler Garrido MD [address] [address] Results Social History Tobacco Use Types Packs/Day Years Used Date Smoking Tobacco: Former Cigarettes Q uit: 1993 Comments Unknown Sex and Gender Information Value Date Recorded Sex Assigned at Female 03/16/2025 9:28 AM CDT Legal Sex Female 11:34 PM CDT Gender Identity Not on file Sexual Orientation Not on file 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 documented in this encounter Plan of Treatment Upcoming Encounters Date Type Department Care Team ([facility] st Contact Info) Description 03/22/2026 10:00 AM CDT Office Visit [facility] [place] [address] Yaakov Bocanegra MD [address] [facility] [address] [place] [address] documented as of this encounter Visit Diagnoses Not on filedocumented in this encounter Care Teams Dry Sand Molder Relationship Specialty Start Date End Date Aldo Ellison DO PCP - General FAMILY PRACTICE 04/03/16 11/29/22 Nalelly Liriano MD [address] [place] [address] PCP - General FAMILY PRACTICE 11/30/22 11/30/22 Nallely Liriano MD [address] [phone] PCP - General FAMILY PRACTICE 08/21/23 Tayler Garrido MD CARDIOVASCULAR DISEASE 02/28/17 12/15/19 Leonid Cullen MD SURGERY 05/01/17 12/15/19 Federico Garner MD [address] [place] [phone] Jackson Prestidigitator CARDIOVASCULAR DISEASE 02/19/18 11/25/24 Lana Dietz APRN, DENTAL RESIDENT-C [address] [place] [phone] NURSE PRACTITIONER 08/21/23 Florecita Moon MD [address] [place], [place] [address] [place] [address] Physician NEUROLOGICAL SURGERY 08/21/23 Yaakov Bocanegra MD [address] [place] [address] Physician INTERVENTIONAL CARDIOLOGY 12/18/24 Nallely [place]iano [place] [address] Physician INTERNAL MEDICINE 11/26/22 11/29/22 documented as of this encounter
--- OUTSIDE RECORDS SUMMARY | 2025-04-27 15:01 | XMS_ITS | Encounter Summary ---
Author Organization [facility] Address [facility] [place] [address] Care Team Providers Care Canal Superintendent Name Role Phone Lana Dietz APRN, NP-C Unavailable Nallely Liriano MD Primary Care Provider Florecita Moon MD Unavailable [phone] Yaakov Bocanegra MD Unavailable [phone] Encounter Details Date Type Department Care Team (Latest Contact Info) Description 04/06/2025 Results Follow-Up [facility] [address] [place] [address] Luanne Hager MA USE ECHOCARDIOGRAM Social History Tobacco Use Types Packs/Day Years [...] Description 03/22/2026 10:00 AM CDT Office Visit [facility] [address] [place] [address] Yaakov Bocanegra MD [address] [facility] [address] [place] [address] documented as of this encounter Visit Diagnoses Not on filedocumented in this encounter Care Teams Canal Superintendent Relationship Specialty Start Date End Date Nallely Liriano MD [address] [address] PCP - General FAMILY PRACTICE 08/21/23 Lana Dietz APRN, DRYWALL APPLICATION SUPERVISOR-C [address] [facility] [address] [place] [phone] NURSE PRACTITIONER 08/21/23 Florecita Moon MD 3 [facility] [address] [place] [id number] Physician NEUROLOGICAL SURGERY 08/21/23 Yaakov Bocanegra MD [address] [facility] [address] [place] [address] Physician INTERVENTIONAL CARDIOLOGY 12/18/24 documented as of this encounter
--- OUTSIDE RECORDS SUMMARY | 2025-04-27 15:01 | XMS_ITS | Referral Summary ---
Author Organization [facility] [address] Address [address] [place] [address] Phone Care Team Providers Care Business Objects Report Developer Name Role Phone Nallely Liriano MD Primary Care Provider [phone] Allergies Active Allergy Reactions Criticality Noted Date [...] 11/19/2023 Assessment & Plan (11/19/2023 1:56 PM RN HEMATOLOGY): Recent. Sleep hygiene handout given Trial trazodone 50 mg HS prn. 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 All [...] prn Assessment & Plan (11/21/2022 6:17 PM RN HEMATOLOGY): Annual Medicare wellness exam completed today. All [...] 11/21/2022 Assessment & Plan (11/19/2023 1:57 PM RN HEMATOLOGY): Chronic and stable. Goal < 130/80 Continue all current medications Continue to follow-up with cardiology as instructed Will continue to monitor Assessment & Plan (08/27/2023 4:35 PM RN HEMATOLOGY): Chronic and stable. Goal < 130/80 Continue [...] monitor Assessment & Plan (11/21/2022 6:17 PM RN HEMATOLOGY): Chronic and stable. Goal < 130/80 Continue all current medications Continue to follow-up with cardiology as instructed Will continue to monitor Mixed hyperlipidemia 11/21/2022 Assessment & Plan (08/27/2023 4:35 PM RN HEMATOLOGY): Chronic and stable. Continue current medication. Will obtain labs today Assessment & Plan (02/13/2023 10:55 AM CDT): - Chronic and stable - Reviewed outside lipid panel - Continue current regimen Assessment & Plan (11/21/2022 6:17 PM RN HEMATOLOGY): Chronic and stable. Continue current medication. 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 PHQ 2 score is 0. Continue current medications and monitor Assessment & Plan (11/21/2022 6:18 PM RN HEMATOLOGY): Chronic and stable. PHQ 2 score 2. [...] file Legal Sex Female 2:52 AM RN HEMATOLOGY Gender Identity Not on file Sexual Orientation Not on file Last Filed Vital Signs Vital Sign Reading Time Taken Comments Blood Pressure 108/60 11/19/2023 12:54 PM RN HEMATOLOGY Pulse 64 11/19/2023 12:54 PM RN HEMATOLOGY Temperature 36.4 C (97.5 F) 11/19/2023 12:54 PM RN HEMATOLOGY Respiratory Rate 20 11/19/2023 12:54 PM RN HEMATOLOGY Oxygen Saturation 95% 11/19/2023 12:54 PM RN HEMATOLOGY Inhaled Oxygen Concentration - - Weight 76.3 kg (168 lb 3.2 oz) 11/19/2023 12:54 PM RN HEMATOLOGY Height 162.6 cm (5' 4.02) 11/19/2023 12:54 PM C Body Mass Index 28.86 11/19/2023 12:54 PM RN HEMATOLOGY Plan of Treatment Not on file Procedures Procedure Name Priority Date/Time Associated Diagnosis Comments DEXA AXIAL SKELETON BONE DENSITY 1 OR MORE SITES Schedule Routine, Read Routine (OP Routine) 11/27/2022 2:08 PM RN HEMATOLOGY Menopause from Last 3 Months or Most Recently Relevant to Health Maintenance Results * Dexa Axial Skeleton Bone Density 1 or 2 Site (11/27/2022 2:08 PM RN HEMATOLOGY) Anatomical Region Laterality Modality Body N/A Other 11/27/2022 8:26 PM RN HEMATOLOGY Narrative 11/27/2022 8:29 PM RN HEMATOLOGY EXAM DESCRIPTION: DEXA AXIAL SKELETON BONE DENSITY 1 OR MORE SITES REASON FOR STUDY: 77 y/o year old F with given history of screening. 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 MF: DUNCAN Report ID: [id number] Reading Location: [place] [address] Procedure Note Osvaldo Cabral MD - 11/27/2022 EXAM DESCRIPTION: DEXA AXIAL SKELETON BONE DENSITY 1 OR MORE SITES REASON FOR STUDY: 77 y/o year old F with given history ofscreening. 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 MF: DUNCAN Report ID: [id number] Reading Location: [place] [address] Nallely Liriano MD IMG DXA PROCEDURES Final Res ult from Last 3 Months or Most Recently Relevant to Health Maintenance Insurance [facility] Care Teams Business Objects Report Developer Relationship Specialty Start Date End Date Nallely Liriano MD PCP - General Family Practice 11/21/22
--- OUTSIDE RECORDS SUMMARY | 2025-04-27 15:01 | XMS_ITS | Clinical Summary ---
Author Organization [facility] Address [address] [place] [address] Care Team Providers Care Generating Plant Superintendent Name Role Phone Lana Dietz APRN, NP-C Unavailable [phone] Nallely Liriano MD Primary Care Provider Florecita Moon MD Unavailable [phone] Yaakov Atkins MD Unavailable Allergies Active Allergy Reactions Criticality Noted Date Comments Celecoxib GI Upset 11/26/2022 Reaction: GI upset, Medications omeprazole 20 MG capsule 1 capsule (20 mg total) daily. 7 Active sertraline 100 MG tablet Take 2 tablets (200 mg total) by mouth daily. Once daily 7 Active aspirin 81 MG chewable tablet Chew 161 mg by mouth daily. Active loperamide 2 MG capsule Take 1 capsule (2 mg total) by mouth as needed for Diarrhea. Active loratadine 10 MG tablet Take 1 tablet (10 mg total) by mouth daily. Active Multiple Vitamins-Minera ls (MULTIVITAMIN ADULT, MINERALS, OR) Take 1 tablet by mouth daily. Active cyclobenzaprine (FLEXERIL) 10 MG tablet Take 1 tablet (10 mg total) by mouth 2 (two) times daily as needed for Muscle Spasms. Active potassium chloride CR (K-TAB) 20 MEQ tablet Take 1 tablet (20 mEq total) by mouth 2 (two) times daily. 60 tablet 3 5 Active chlorthalidone (HYGROTEN) 25 MG tabletIndicatio ns:Hypertension , unspecified type TAKE 1 TABLET(25 MG) BY MOUTH DAILY 90 tablet 5 Active atorvastatin (LIPITOR) 80 MG tablet TAKE 1 TABLET(80 MG) BY MOUTH DAILY 90 tablet 5 Active carvedilol (COREG) 12.5 MG tabletIndicatio ns:Hypertension , unspecified type TAKE 1 TABLET BY MOUTH TWICE DAILY 180 tablet 5 Active chlorthalidone (HYGROTEN) 25 MG tablet TAKE 1 TABLET(25 MG) BY MOUTH DAILY 90 tablet 5 025 Discontinued atorvastatin (LIPITOR) 80 MG tablet Take 1 tablet (80 mg total) by mouth daily. 90 tablet 5 025 Discontinued carvedilol (COREG) 12.5 MG tablet TAKE 1 TABLET(12.5 MG) BY MOUTH TWICE DAILY 180 tablet 5 025 Discontinued Active Problems Problem Noted Date Diagnosed Date Aortic valve insufficiency 04/27/2018 Rheumatoid arthritis (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 PAC (premature atrial contraction) Hypertension Hyperlipidemia Sleep apnea Overview (11/27/2016): uses CPAP Encounters Date Type Department Care Team Description 04/06/2025 Results Follow-Up [facility] [id number] [place] [address] Luanne Hager MA USE ECHOCARDIOGRAM 04/02/2025 3:20 PM CDT - 04/02/2025 11:59 PM CDT Hospital Encounter [facility] [address] [place] [address] Yaakov Atkins MD Discharge Disposition: Home or Self Care (Routine Discharge) 04/02/2025 Travel 03/18/2025 Telephone [facility] [address] [place] [address] Yaakov Atkins MD Appointment Request 03/16/2025 10:00 AM CDT Office Visit [facility] [address] [facility] [place] [address] Yaakov Atkins MD Heart Problem 03/16/2025 9:32 AM CDT - 03/16/2025 11:59 PM CDT Hospital Encounter [facility] [address] [facility] [place] [address] Yaakov Atkins MD Discharge Disposition: Home or Self Care (Routine Discharge) 03/16/2025 Travel 03/15/2025 Telephone [facility] [address] [place] [address] Yaakov Atkins MD Appointment Reminder 03/11/2025 Orders Only [facility] [address] [place] [address] Yaakov Atkins MD from Last 3 Months Family History Medical History Relation Comments CABG Brother 1 Colon Cancer Brother 1 AZ Brother 1 Stent Cardiac Brother 1 Stroke Brother 1 Cancer Brother 2 Bladder cancer Colon Cancer Brother 2 Alcohol Abuse Father Cirrhosis Father Aneurysm Maternal Grandfather AAA Alzheimer's Mother CABG Mother Valve Disease Mother Relation Status Comments Brother 1 Alive Brother 2 Alive Father (Age 64) Maternal Grandfather (Age 68) Maternal Grandmother (Age 82) Mother (Age 92) Social History Tobacco Use Types Packs/Day Years [...] file Not on file Not on file Last Filed Vital Signs Vital Sign Reading Time Taken Comments Blood Pressure 120/73 03/16/2025 9:51 AM CDT Pulse 65 03/16/2025 9:51 AM CDT Temperature - - Respiratory Rate 18 03/16/2025 9:51 AM CDT Oxygen Saturation 94% 03/16/2025 9:51 AM CDT Inhaled Oxygen Concentration - - Weight 73.5 kg (162 lb) 03/16/2025 9:51 AM CDT Height 160 cm (5' 3) 03/16/2025 9:51 AM CDT Body Mass Index 28.7 03/16/2025 9:51 AM CDT Plan of Treatment Upcoming Encounters Date Type Department Care Team (Late st Contact Info) Description 03/22/2026 10:00 AM CDT Office Visit [facility] [place] [address] Yaakov Atkins MD [address] [facility] [address] [place] [address] Health Maintenance Due Date Last Done Comments Hepatitis C 1965 DTaP, Tdap and Td Vaccines (1 - Tdap) 1966 Zoster Vaccines (1 of 2) 1997 AAA SCREENING 2012 Annual Medicare Wellness Visit 2012 Pneumococcal Vaccine: 50+ Years (2 of 2 - PPSV23) 09/10/2017 07/16/2017 RSV Immunization or 60+ Years (1 - 1-dose 75+ series) 2022 ASCVD LDL 01/18/2024 01/17/2023, 02/0 12/2022, 11/27/2017, Additional history exists COVID-19 Vaccine ( season) 2024 09/13/2021, 12/12/2020, 11/14/2020 Dexa Scan (General) Completed 11/27/2022, 3 Meningococcal B Vaccine Aged Out No l onger eligible based on patient's age to complete this topic Meningococcal Vaccine Aged Out No murtaza judson eligible based on patient's age to complete this topic RSV Immunizations Under 20 Months Aged Out No longer eligible based on patient's age to complete this topic Procedures Procedure Name Priority Date/Time Associated Diagnosis Comments USE ECHOCARDIOGRAM Routine 04/02/2025 4: 31 PM CDT Aneurysm of ascending aorta without rupture Coronary artery disease involving squaxin coronary artery of squaxin heart with angina pectoris ECG 12-LEAD Routine 03/16/2025 9:41 AM CDT Essential (primary) hypertension Hyperlipidemia, mixed LIPID PANEL Routine 01/17/2023 Mixed hyperlipidemia snf use of drug from Last 3 Months or Most Recently Relevant to Health Maintenance Results * USE ECHOCARDIOGRAM (04/02/2025 4:31 PM CDT) Anatomical Region Laterality Modality Cardiac Ultrasound 04/02/2025 4:01 PM CDT Narrative 04/06/2025 4:52 AM CDT Echocardiography Report Pat.Name: Porfirio Guerra Pat.ID: [id number] .Date: 04/02/2025 Refer.MD: Skylar, [facility] Exam Time: 4:01:00 PM Study Type:OUTREACH Height: 63 in Weight: 160 lb BSA: 1.76 m2 Age: 8 1945,79Y Sex: F Sonogrphr: Brooke Ocampo. Stat.:Outpatient Reason for Study:Aneurysm of ascending aorta without rupture, Coronary artery disease involving squaxin coronary artery of squaxin heart with angina pectoris Procedures: 2D, M-mode, Doppler, Color Flow, Study performed at [facility], [place], [place] and interpreted by [facility]. ++++++++++++++++++++++++++++++++++++ SUMMARY: ++++++++++++++++++++++++++++++++++++ The left ventricular systolic function is normal. The right ventricular function is normal. Mild aortic regurgitation. ++++++++++++++++++++++++++++++++++++ FINDINGS: ++++++++++++++++++++++++++++++++++++ LV: The left ventricular size is mildly enlarged. The left ventricular systolic function is normal. Estimated left ventricular ejection fraction is 50-55%. The average E/e' is indeterminate at 9-12 and EF is > or equal to 50. RV: The right ventricle size is normal. The right ventricular function is normal. LA: Left atrial size is normal. RA: The right atrial size is normal. ANNEMARIE: No evidence of pericardial effusion. AO: The sinotubular junction measures 4.0cm. SVn: Inferior vena cava is normal. AV: The aortic valve is trileaflet. No evidence of aortic valve stenosis. Mild aortic regurgitation. MV: Structurally normal mitral valve. Calcified posterior mitral annulus. PV: Structurally normal pulmonic valve. Mild pulmonic regurgitation. TV: The tricuspid valve appears structurally normal. There is trace tricuspid regurgitation. <Electronic Signature> 04/06/2025 04:52 AM Yaakov Atkins M.D. Procedure Note Yaakov Atkins MD - 04/06/2025 Echocardiography Report Pat.Name: Porfirio Guerra Pat.ID: [id number] .Date: 04/02/2025 Refer.MD: Skylar, [facility] Exam Time: 4:01:00 PM Study Type:SKYLAR Height: 63 in Weight: 160 lb BSA: 1.76 m2 Age: 8 1945,79Y Sex: F Sonogrphr: Brooke Ocampo. Stat.:Outpatient Reason for Study:Aneurysm of ascending aorta without rupture, Coronary artery disease involving squaxin coronary artery of squaxin heart with angina pectoris Procedures: 2D, M-mode, Doppler, Color Flow, Study performed at [facility], [place], [place] and interpreted by [facility]. ++++++++++++++++++++++++++++++++++++ SUMMARY: ++++++++++++++++++++++++++++++++++++ The left ventricular systolic function is normal. The right ventricular function is normal. Mild aortic regurgitation. ++++++++++++++++++++++++++++++++++++ FINDINGS: ++++++++++++++++++++++++++++++++++++ LV: The left ventricular size is mildly enlarged. The left ventricular systolic function is normal. Estimated left ventricular ejection fraction is 50-55%. The average E/e' is indeterminate at 9-12 and EF is > or equal to 50. RV: The right ventricle size is normal. The right ventricular function is normal. LA: Left atrial size is normal. RA: The right atrial size is normal. ANNEMARIE: No evidence of pericardial effusion. AO: The sinotubular junction measures 4.0cm. SVn: Inferior vena cava is normal. AV: The aortic valve is trileaflet. No evidence of aortic valve stenosis. Mild aortic regurgitation. MV: Structurally normal mitral valve. Calcified posterior mitral annulus. PV: Structurally normal pulmonic valve. Mild pulmonic regurgitation. TV: The tricuspid valve appears structurally normal. There is trace tricuspid regurgitation. <Electronic Signature> 04/06/2025 04:52 AM Yaakov Atkins M.D. us Yaakov Atkins MD ECHO Final Result * ECG 12 lead (HOSPITAL PERFORMED ONLY) (03/16/2025 9:41 AM CDT) 03/16/2025 9:41 AM CDT Narrative [facility] - 03/18/2025 5:29 AM CDT [address] [place] [address] Test Date: 2025-03-16 Pat Name: PORFIRIO GUERRA Department: 3 Room: Gender: Female Product Safety Technician: : 1945 Requested By: YAAKOV ATKINS Order Number: [id number] Reading MD: Yaakov Atkins Measurements Intervals [place] Rate: 62 P: 54 [place]: 211 QRS: 3 QRSD: 113 T: 12 QT: 408 QTc: 417 Interpretive Statements SINUS RHYTHM WITH FIRST DEGREE AV BLOCK INCOMPLETE RIGHT BUNDLE BRANCH BLOCK [90+ ms QRS DURATION, TERMINAL R IN V1/V2, 40+ ms S IN I/aVL/V4/V5/V6] NONSPECIFIC ST & T-WAVE ABNORMALITY Procedure Note Yaakov Atkins MD - 03/18/2025 [place] [address] [facility] [place] [address] Test Date: 2025-03-16 Pat Name: PORFIRIO GUERRA Department: 3 Room: Gender: Female Product Safety Technician: : 1945 Requested By: YAAKOV ATKINS Order Number: [id number] Reading MD: Yaakov Atkins Measurements Intervals [place] Rate: 62 P: 54 [place]: 211 QRS: 3 QRSD: 113 T: 12 QT: 408 QTc: 417 Interpretive Statements SINUS RHYTHM WITH FIRST DEGREE AV BLOCK INCOMPLETE RIGHT BUNDLE BRANCH BLOCK [90+ ms QRS DURATION, TERMINAL RIN V1/V2, 40+ ms S IN I/aVL/V4/V5/V6] NONSPECIFIC ST & T-WAVE ABNORMALITY us Yaakov Atkins MD ECG ORDERABLES Final Result [facility] * LIPID PANEL (01/17/2023) CHOLESTEROL 171 0 - 200 HDL 46 40 - 60 TRIGLYCERIDES 220 0 - 150 LDL (CALCULATED) 81 <130 01/17/2023 us Lana Dietz APRN, SEWING MACHINE OPERATOR [facility] Final Result from Last 3 Months or Most Recently Relevant to Health Maintenance Insurance AETNA AETNA Care Teams Generating Plant Superintendent Relationship Specialty Start Date End Date Nallely Liriano MD [address] [address] PCP - General FAMILY PRACTICE 08/21/23 Lana Dietz, PROGRAM PROFESSIONAL, SEWING MACHINE OPERATOR [facility] [address] [facility] [address] [place] [phone] NURSE PRACTITIONER 08/21/23 Florecita Moon MD 3 [facility] [address] [place] [address] Physician NEUROLOGICAL SURGERY 08/21/23 Yaakov Atkins MD [address] [facility] [address] [place] [address] Physician INTERVENTIONAL CARDIOLOGY 12/18/24
[2025-04-27 15:11] LABS: Hematocrit 35.6 % (35.0-42.0); Hemoglobin 11.2 g/dL (11.7-13.8); Immature Granulocyte Percent A 0.1 % (0.0-0.0); Lymphocytes Absolute Auto 1.53 K/mm3 (1.10-4.50); Mean Corpuscular HGB Conc 31.5 g/dL (32-36); Mean Corpuscular Hemoglobin 27.5 pg (27.0-31.0); Mean Corpuscular Volume 87.3 fL (78.0-102.0); Nucleated Red Blood Cells Absolute Auto 0.00 K/mm3 (0.00-0.00); Nucleated Red Blood Cells Perc 0.0 % (0-0.0); Platelet Count Result 288 K/mm3 (150-420); Red Blood Count 4.08 M/mm3 (4.20-5.40); White Blood Count 7.3 K/mm3 (4.8-10.8)
[2025-04-27 15:17] LABS: Add Urine Microscopic? YES; Appearance Urine Clear (Clear); Glucose Urine UA Negative (Negative); Leukocyte Esterase Ur Negative (Negative); Nitrate Urine Negative (Negative); Specific Grav Ur 1.025 (1.010-1.020)
[2025-04-27 15:36] LABS: MALB Creatinine Ratio 18.4 mg/g (0-30)
[2025-04-27 15:53] LABS: Alanine Aminotransferase 15 U/L (6-35); Albumin Level 4.2 g/dL (3.5-5.1); Alkaline Phosphatase 81 U/L (38-126); Anion Gap 7 mmol/L (4-12); Aspartate Amino Transferase 31 U/L (14-36); Bilirubin,Total 0.8 mg/dL (0.2-1.3); Blood Urea Nitrogen 27 mg/dL (7-17); CRP < 0.5 mg/dL (<1.0); Calcium 9.6 mg/dL (8.4-10.2); Carbon Dioxide 25 mmol/L (22-30); Chloride 107 mmol/L (98-107); Estimated Glomerular Filt Rate 39; Glucose 88 mg/dL (65-110); Osmolality Calculated 292 mOsm/kg (285-295); Potassium 4.8 mmol/L (3.4-5.0); Sodium 139 mmol/L (137-145); Total Protein 7.6 g/dL (6.3-8.2)
[2025-04-27 16:06] LABS: RFT Charge Test YES; Rheumatoid Factor Titer 1:32/320 (Negative)
[2025-04-27 16:21] LABS: Thyroid Stimulating Hormone 1.930 uIU/mL (0.465-4.680)
== END 2025-04-27 14:57 | disposition home or self-care (01) ==
LOC: CHSLAB 14:58
PROVIDERS: PCP Family Medicine; Visit Provider Family Medicine
DX: M06.9 Rheumatoid arthritis, unspecified (principal); I10 Essential (primary) hypertension; M54.2 Cervicalgia; M48.04 Spinal stenosis, thoracic region; M43.02 Spondylolysis, cervical region; M43.06 Spondylolysis, lumbar region
CPT/HCPCS: 36415; 72040; 72072; 72100; 80053; 81001; 82043; 84443; 85025; 85652; 86140; 86430; 86431

== ENCOUNTER 2025-06-24 13:55 | Outpatient (CLI) | payer MEDICARE, SELFPAY ==
[2025-06-24 15:08] LABS: Anion Gap 12 mmol/L (4-12); Blood Urea Nitrogen 21 mg/dL (7-17); Calcium 10.0 mg/dL (8.4-10.2); Carbon Dioxide 29 mmol/L (22-30); Chloride 101 mmol/L (98-107); Estimated Glomerular Filt Rate 47; Glucose 94 mg/dL (65-110); Osmolality Calculated 297 mOsm/kg (285-295); Potassium 4.0 mmol/L (3.4-5.0); Sodium 142 mmol/L (137-145)
--- OUTSIDE RECORDS SUMMARY | 2025-06-24 15:40 | XMS_ITS | Clinical Summary ---
Author Organization [facility] [address] Address [address] [place] [address] Phone Care Team Providers Care Java Developer With Security Clearance Name Role Phone Nallely Liriano MD Primary Care Provider [phone] Allergies Active Allergy Reactions Criticality Noted Date [...] 11/19/2023 Assessment & Plan (11/19/2023 1:56 PM END WORKER): Recent. Sleep hygiene handout given Trial trazodone 50 mg HS prn. Risks/benefits and alternatives discussed Consider follow-up with sleep medicine given history of untreated NEDRA if ongoing Continue to monitor Rheumatoid arthritis involvi ng multiple sites, unspecified whether rheumatoid factor present 11/19/2023 Coronary artery disease invo lving [place] coronary artery of [place] heart with angina pectoris 11/19/2023 Preoperative examination 08/27/2023 Assessment & Plan (08/27/2023 4:37 PM END WORKER): Preoperative physical exam performed today and within [...] 11/21 Assessment & Plan (11/19/2023 1:55 PM END WORKER): Annual Medicare wellness exam completed today. All [...] prn Assessment & Plan (11/21/2022 6:17 PM END WORKER): Annual Medicare wellness exam completed today. All [...] 11/21/2022 Assessment & Plan (11/19/2023 1:57 PM END WORKER): Chronic and stable. Goal < 130/80 Continue all current medications Continue to follow-up with cardiology as instructed Will continue to monitor Assessment & Plan (08/27/2023 4:35 PM END WORKER): Chronic and stable. Goal < 130/80 Continue [...] monitor Assessment & Plan (11/21/2022 6:17 PM END WORKER): Chronic and stable. Goal < 130/80 Continue all current medications Continue to follow-up with cardiology as instructed Will continue to monitor Mixed hyperlipidemia 11/21/2022 Assessment & Plan (08/27/2023 4:35 PM END WORKER): Chronic and stable. Continue current medication. Will obtain labs today Assessment & Plan (02/13/2023 10:55 AM CDT): - Chronic and stable - Reviewed outside lipid panel - Continue current regimen Assessment & Plan (11/21/2022 6:17 PM END WORKER): Chronic and stable. Continue current medication. Will obtain outside lab results and adjust meds prn Current mild episode of major depressive disorde r 11/21/2022 Assessment & Plan (11/19/2023 1:57 PM END WORKER): Chronic and stable. PHQ 2 score is 0. Continue current medications and monitor Assessment & Plan (11/21/2022 6:18 PM END WORKER): Chronic and stable. PHQ 2 score 2. [...] 07/16/2017 Surgical History Surgery Date Site/Laterality Comments DC CHOLECYSTECTOMY Cholecystectomy - (Added by TW Conv) DC DELIVERY ONLY Section - (Added by TW [...] on file Legal Sex Female 2:52 AM END WORKER Gender Identity Not on file Sexual Orientation Not on file Obstetrics History Last Filed Vital Signs Vital Sign Reading Time Taken Comments Blood Pressure 108/60 11/19/2023 12:54 PM END WORKER Pulse 64 11/19/2023 12:54 PM END WORKER Temperature 36.4 C (97.5 F) 11/19/2023 12:54 PM END WORKER Respiratory Rate 20 11/19/2023 12:54 PM END WORKER Oxygen Saturation 95% 11/19/2023 12:54 PM END WORKER Inhaled Oxygen Concentration - - Weight 76.3 kg (168 lb 3.2 oz) 11/19/2023 12:54 PM END WORKER Height 162.6 cm (5' 4.02) 11/19/2023 12:[address] Body Mass Index 28.86 11/19/2023 12:54 PM END WORKER Plan of Treatment Health Maintenance Due Date Last Done Comments Hepatitis C Screening 1945 DTaP/Tdap/Td Vaccine (1 - Tdap) 1958 Hepatitis B Screening 1965 Zoster Vaccine (1 of 2) 1997 Pneumococcal vaccine 65+ (2 of 2 - PCV20 or PCV21) 07/16/2018 07/16/2017 Depression Screening 11/19/2024 11/19/2023, 11/21/19 23 Fall Risk Assessment 11/19/2024 11/19/2023, 11/21/19 23 Well Visit 65+ 11/19/2024 11/19/2023, 11/21/2022 Osteoporosis Screening-Bone Density Scan 11/27/2024 11/27/2022 Covid-19 Vaccine ( season) 2025 09/13/2021, 12/12/2020, 11/14/2020 Influenza Vaccine (#1) 2025 3, 07/16/2017, 07/16/2017 Procedures Procedure Name Priority Date/Time Associated Diagnosis Comments DEXA AXIAL SKELETON BONE DENSITY 1 OR MORE SITES Schedule Routine, Read Routine (OP Routine) 11/27/2022 2:08 PM END WORKER Menopause from Last 3 Months or Most Recently Relevant to Health Maintenance Results * Dexa Axial Skeleton Bone Density 1 or 2 Site (11/27/2022 2:08 PM END WORKER) Anatomical Region Laterality Modality Body N/A Other 11/27/2022 8:26 PM END WORKER Narrative 11/27/2022 8:29 PM END WORKER EXAM DESCRIPTION: DEXA AXIAL SKELETON BONE DENSITY 1 OR MORE SITES REASON FOR STUDY: 77 y/o year old F with given history of screening. 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 MF: DUNCAN Report ID: [id number] Reading Location: [id number] [facility] Note Osvaldo Cabral MD - 11/27/2022 EXAM DESCRIPTION: DEXA AXIAL SKELETON BONE DENSITY 1 OR MORE SITES REASON FOR STUDY: 77 y/o year old F with given history ofscreening. 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 MF: DUNCAN Report ID: [id number] Reading Location: [place] [address] Nallely Liriano MD IMG DXA PROCEDURES Final Res ult from Last 3 Months or Most Recently Relevant to Health Maintenance Insurance [facility] [employer] [facility] [employer]OMi Care Teams Java Developer With Security Clearance Relationship Specialty Start Date End Date Nallely Liriano MD PCP - General Family Practice 11/21/22
--- OUTSIDE RECORDS SUMMARY | 2025-06-24 15:40 | XMS_ITS | Encounter Summary ---
Author Organization [facility] Address [address] [place] [address] Care Team Providers Care Wellness Nurse Name Role Phone No, Physician Primary Care Provider [phone] Nallely Liriano MD Primary Care Provider Encounter Details Date Type Department Care Team (Late st Contact Info) Description 02/14/2015 Orders Only [facility] Health Information Management [address] [place] [id number] Scanning, Provider Social History Tobacco Use Types Packs/Day Years Used Date Smoking Tobacco: Former Comments Unknown Sex and Gender Information Value Date Recorded Sex Assigned at Not on file 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
--- OUTSIDE RECORDS SUMMARY | 2025-06-24 15:40 | XMS_ITS | Encounter Summary ---
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
--- OUTSIDE RECORDS SUMMARY | 2025-06-24 15:40 | XMS_ITS | Continuity of Care Document ---
Author Organization [facility] Address [address] [facility] [address] [place] [address] Insurance Providers Payer Plan Claims Address Claims Phone Policy Number Group Number Relation Employer Guarantor Name Guarantor Guarantor Address Guarantor Phone MEDIC ARE [address], [facility], [place] [address] tel:[phone] Self Cathy Worley 1945 [address] [place] [address] [employer] [address], [place] [address] [id number] Self Cathy Brownanda 1945 [address] [place] [address] [employer] [address], [place] [address] tel:[phone] Self Cathy Brunilda 1945 [address] [place] [address] Problems Condition ICD9 code ICD10 code SNOMED [...]
--- OUTSIDE RECORDS SUMMARY | 2025-06-24 15:40 | XMS_ITS | Clinical Summary ---
Author Organization [facility] Address [address] [facility], [place] [address] Phone Care Team Providers Care Materials Planning Manager Name Role Phone Aldo Ellison DO Primary Care Provider [phone] Allergies No known active allergies Medications hydroCHLOROthiaz [...] (MULTIVITAMIN PO) Take by mouth. 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 Gender Identity Not on file Sexual Orientation [...] (5 0+ years) (2 of 2 - PCV20 or PCV21) 07/16/2018 07/16/2017 Respiratory Syncytial Virus (RSV) Immunization (Adult) (1 - 1-dose 75+ series) 2022 Influenza Immunization (#1) 2025 07/16/2017 SARS-COV-2 Immunization ( season) 2025 09/13/2021, 12/12/2020, 11/14/2020 Pneumococcal Immunization Combined Discontinued 07/16/2017 Hepatitis B [...] age to complete this topic Insurance MEDICARE [employer] GENERIC Care Teams Materials Planning Manager Relationship Specialty Start Date End Date Aldo Ellison DO [address] [place] [address] PCP - General Manpower Development Advisor 11/07/16
== END 2025-06-24 13:56 | disposition home or self-care (01) ==
PROVIDERS: PCP Family Medicine; Visit Provider Anesthesiology
DX: Z79.899 Other long term (current) drug therapy (principal)
CPT/HCPCS: 36415; 80048

== ENCOUNTER 2025-06-30 02:40 | Day surgery (SDC) | payer MEDICARE, SELFPAY ==
[2025-06-23 09:24] VITALS: BMI 29.0
--- NOTE | 2025-06-23 09:40 | PC.NURSE ---
Report to the Outpatient Waiting Room, entrance under the green pavilion located off [facility], at time __0830am on date . Planned Procedure Time: __1030am .? Time changes happen often and if your time is changed the preop area will call you the afternoon before. - You and your visitor will be asked to self-screen and do not enter if you have any COVID symptoms. Please call surgeon if you need to reschedule. - A mask is optional within the hospital at this time. Patients may have clear liquids (water, carbonated beverages, clear teas, apple juice) until 3 hours prior to surgery with a maximum of 20 ounces. - No food from midnight until time of surgery and no smoking, or chewing tobacco (or any form of nicotine). No chewing gum, candy or mints. ( 07:30am) Take only the following medications with a SIP of water on the morning of surgery: Coreg, Gabapentin and Sertraline, Tyelenol if needed DO NOT STOP ANY OF YOUR OTHER PRESCRIPTION MEDICATIONS PRIOR TO SURGERY EXCEPT THE FOLLOWING Hold all vitamins and supplements for 3 days per anesthesiologist. Date of last dose is 06/26/25 Medications to discontinue per physician HOLD Aspirin for [address] Moon Date to take last dose 06/22/25 Please no make-up, nail ivorian, hairspray, perfume, deodorant, or body powder the day of surgery.? No jewelry (including any body piercings) or valuables the day of surgery, leave them at home.? Please take a shower or bath the night before, or the morning of, surgery with an antibacterial soap. (GOLD DIAL) ?Wear comfortable, loose fitting clothing.? - Jewelry must be removed prior to entering the operating room.? Rings and piercings that are not removed may be cut off. - The hospital will not accept responsibility for valuables.? - Please leave all valuables, including medications, at home the day of surgery. If you are going home after surgery, a licensed route delivery service driver must drive you home.? - NO public transportation without another adult if you receive anesthesia. - We recommend that an adult stay with you for 24 hours following discharge. - We also recommend that you do not drive, make important decision, drink alcoholic beverages, or take any drugs that were not prescribed by your health care provider for at least 24 hours after your discharge time. Follow any additional instructions given to you from your surgeon. Pt to get am labs tomorrow at [facility] orders in. Telephone instructions given to ___Patient and asked if any additional questions and then verbalized understanding. Patient advised to call surgeon office or pre surgery nurse liaison [phone] if any additional questions.
[2025-06-30 08:45] VITALS: BP 109/64; PULSE 65; TEMP 36.7; O2SAT 93
[2025-06-30] MEDS: LACTATED RINGERS 1,000 ML 30 ML IV CONT (09:10)
--- NOTE | 2025-06-30 09:14 | WPDANESEPPF ---
Anes - Initial Pre Proc Eval Procedure: Operation Date: 06/30/25 10:30 Proposed Procedures p Left Carpal Tunnel Release - Florecita Moon MD Date/Time: 06/30/25 09:14 Surgeon: Florecita Moon MD Pre Op Diagnosis: Left Carpal Tunnel Syndrome Patient Data Age: 80 Gender: F Height: 1.6 m Weight: 71.1 kg Allergies Allergy/AdvReac Type Severity Reaction Status Date / Time NSAIDS (Non-Steroidal AdvReac Gastrointestinal Verified 06/23/25 09:17 Anti-Inflamma Upset Home Medications ?Medication ?Instructions ?Recorded ?Confirmed ?Type carvedilol 12.5 mg tablet 12.5 mg PO Q12H 07/05/23 06/30/25 History chlorthalidone 25 mg tablet 25 mg PO DAILY 07/05/23 06/30/25 History omeprazole 20 mg capsule,delayed 20 mg PO DAILY 07/05/23 06/30/25 History release sertraline 100 mg tablet 200 mg PO DAILY 07/05/23 06/30/25 History aspirin 81 mg tablet,delayed 162 mg PO HS 08/05/23 06/30/25 History release Held on 06/23/25. Instructions: .Provider Order cetirizine 10 mg tablet (Zyrtec) 10 mg PO DAILY 08/05/23 06/30/25 History multivitamin 1 tablet PO DAILY 08/05/23 06/30/25 History potassium 20 mg chewable tablet 60 mg PO DAILY 08/05/23 06/30/25 History acetaminophen 500 mg tablet 1,000 mg PO BID 06/11/24 06/23/25 History atorvastatin 80 mg tablet 80 mg PO DAILY 06/11/24 06/30/25 History gabapentin 300 mg capsule 300 mg PO BID 05/13/25 06/30/25 History Patient hx anesthesia problems: none Family hx anesthesia problems: none Results Review: All pre-operative results and documents have been reviewed as part of the pre-operative evaluation. [facility] Past Medical History Medical History (Updated 06/30/25 @ 09:15 by Amado Mercedes DO) TIA (transient ischemic attack) Rheumatoid arthritis NEDRA (obstructive sleep apnea) Fibromyalgia Hyperlipemia Heart disease Surgical History Surgical History (Updated 06/30/25 @ 09:15 by Amado Mercedes DO) History of Hx of CABG x3, 2017 Family History Family History Father Alcoholism Hypertension Heart problem Mother Hypertension Social History Social History Years smoked: 20 Smoking status: Former smoker Tobacco type: cigarettes Second hand tobacco smoke exposure: No Smoking end date: 10/14/93 Alcohol intake: current Drinks per week: 1 Alcohol use details: RARELY - COUPLE TIMES A YEAR Substance use: never Substance use type: does not use Do You Feel Safe in your Home?: Yes Lack of Transportation: No Lack of Food: Never True Current Housing: I Have Housing Concerned About Future Housing: No Difficulty Paying Gas/Electric Bills: No Difficulty Paying for Meds: No Currently Unemployed: No Education: Decline to Answer Difficulty w/ Childcare or Family Care: No Living arrangements: with friend(s) Additional living arrangements comments: LIVES WITH [id number] Occupation/Education: retired Gender identity (if verbalized by the patient): Female Sexual Orientation (if Verbalized by the Patient): Straight or Heterosexual Spiritual care concerns: No Anes - Eval Final PreProcedure Day of Procedure 06/30/25 09:14 Patient weight: overweight Heart: regular rate and rhythm Lungs: clear to auscultation Airway: Mallampati scale class II Neurological: alert and oriented Last oral intake: >/= 8 hours ASA classification: III Emergent: no Anesthetic plan: proceed Anesthesia type and monitoring: general GIVS and standard monitoring Results Review: All pre-operative results and documents have been reviewed as part of the pre-operative evaluation. Informed Consent: The patient's anesthetic plan and its attendant risks and benefits were discussed with the patient/family/POA. Questions were solicited and answers provided to the satisfaction of the patient/family/POA.
--- NOTE | 2025-06-30 09:41 | WPDHPUPDATE1 ---
History and Physical Update Update Date/Time: 06/30/25 09:41 History and Physical has been reviewed, including an updated exam of the patient. There are NO changes in the patient's condition. Risks, benefits, and alternatives have been discussed and questions answered. Patient agrees to proceed with procedure.
--- NOTE | 2025-06-30 09:41 | PM.IMHP ---
H&P: HPI History of Present Illness Date/Time: 06/30/25 09:41 Chief Complaint: carpal tunnel syndrome Narrative: Ms. Worley is a 80-year-old female with history of HTN and coronary artery disease status post CABG on aspirin on whom I performed a posterior cervical decompression and fusion in August 2023 for cervical myelopathy. She is here today to discuss bothersome carpal tunnel symptoms on her left side. We had previously discussed this when I originally met her, but her symptoms were manageable at that time. She describes paresthesias involving the 1st 4 fingers of her left hand that are intermittent but are becoming more frequent in nature and occur on a daily basis. She is unable to sleep because of her symptoms. She can get some relief with wearing a splint but has noticed progression despite splinting. She occasionally can get pain into these fingers as well. She describes difficulty gripping things in opening jars with her left hand. She is ready to consider surgery. She does note an increase in falls in the last 2 weeks which she attributes to starting gabapentin 3 weeks ago for back pain. She does find the medications somewhat helpful for her pain, but it causes her to feel off balance and sleepy. She otherwise denies any significant changes in her medical issues since I last saw her. Review of Systems Review of Systems: All systems reviewed & are unremarkable except as noted in HPI and below PMFSH Past Medical History Medical History (Updated 06/30/25 @ 09:15 by Amado Mercedes DO) TIA (transient ischemic attack) Rheumatoid arthritis NEDRA (obstructive sleep apnea) Fibromyalgia Hyperlipemia Heart disease Surgical History Surgical History (Updated 06/30/25 @ 09:15 by Amado Mercedes DO) History of Hx of CABG x3, 2017 Family History Family History Father Alcoholism Hypertension Heart problem Mother Hypertension Social History Social History Years smoked: 20 Smoking status: Former smoker Tobacco type: cigarettes Second hand tobacco smoke exposure: No Smoking end date: 10/14/93 Alcohol intake: current Drinks per week: 1 Alcohol use details: RARELY - COUPLE TIMES A YEAR Substance use: never Substance use type: does not use Do You Feel Safe in your Home?: Yes Lack of Transportation: No Lack of Food: Never True Current Housing: I Have Housing Concerned About Future Housing: No Difficulty Paying Gas/Electric Bills: No Difficulty Paying for Meds: No Currently Unemployed: No Education: Decline to Answer Difficulty w/ Childcare or Family Care: No Living arrangements: with friend(s) Additional living arrangements comments: LIVES WITH [id number] Occupation/Education: retired Gender identity (if verbalized by the patient): Female Sexual Orientation (if Verbalized by the Patient): Straight or Heterosexual Spiritual care concerns: No Meds Home Medications and Allergies Home Medications ?Medication ?Instructions ?Recorded ?Confirmed ?Type carvedilol 12.5 mg tablet 12.5 mg PO Q12H 07/05/23 06/30/25 History chlorthalidone 25 mg tablet 25 mg PO DAILY 07/05/23 06/30/25 History omeprazole 20 mg capsule,delayed 20 mg PO DAILY 07/05/23 06/30/25 History release sertraline 100 mg tablet 200 mg PO DAILY 07/05/23 06/30/25 History aspirin 81 mg tablet,delayed 162 mg PO HS 08/05/23 06/30/25 History release Held on 06/23/25. Instructions: .Provider Order cetirizine 10 mg tablet (Zyrtec) 10 mg PO DAILY 08/05/23 06/30/25 History multivitamin 1 tablet PO DAILY 08/05/23 06/30/25 History potassium 20 mg chewable tablet 60 mg PO DAILY 08/05/23 06/30/25 History acetaminophen 500 mg tablet 1,000 mg PO BID 06/11/24 06/23/25 History atorvastatin 80 mg tablet 80 mg PO DAILY 06/11/24 06/30/25 History gabapentin 300 mg capsule 300 mg PO BID 05/13/25 06/30/25 History Allergies Allergy/AdvReac Type Severity Reaction Status Date / Time NSAIDS (Non-Steroidal AdvReac Gastrointestinal Verified 06/23/25 09:17 Anti-Inflamma Upset Vital Signs Vital Signs - 24 hr 06/30/25 08:45 Temperature 98.1 F Pulse Rate 65 Blood Pressure 109/64 Pulse Oximetry 93 Oxygen Delivery Room Air Exam Narrative: Mild atrophy in left thenar area Decreased sensation to light touch in first 4 fingers of left hand Positive Tinel's and Phalen's on left side at wrist full opponens pollicis strength Unless otherwise stated above, the patient's physical exam is as follows: General: -Well developed and well nourished. No acute distress. Cooperative with exam. Mental status: -Awake and oriented to person, place, and time. Affect is normal. -Fund of knowledge appropriate -Recent and remote memory are intact -Attention span and concentration appear normal -Language function is normal -There is no evidence of aphasia in conversational speech. Cranial nerves: -CN II: Visual elena full to bedside confrontation -CN III, IV, : Pupils equal, round, and reactive to light; extraocular movements, no ptosis, no nystagmus -CN V: Facial sensation intact in V1 through V3 distributions -CN VII: Face symmetric -CN VIII: Hearing intact to conversational speech -CN IX, X: Palate elevates symmetrically; normal phonation -CN XI: Symmetric full strength of sternocleidomastoid and trapezius muscles -CN XII: Tongue protrudes midline Integumentary: -No obvious skin lesions or masses Motor: -Muscle tone normal without spasticity of flaccidity. No atrophy. No fasciculations. -No pronator drift -Right upper extremity: deltoid 5/5, biceps 5/5, triceps 5/5, wrist extensors 5/5, wrist flexors 5/5, intrinsics 5/5 -Left upper extremity: deltoid 5/5, biceps 5/5, triceps 5/5, wrist extensors 5/5, wrist flexors 5/5, intrinsics 5/5 -Right lower extremity: iliopsoas 5/5, quadriceps 5/5, hamstrings 5/5, tibialis anterior 5/5, gastroc-soleus 5/5, EHL 5/5 -Left lower extremity: iliopsoas 5/5, quadriceps 5/5, hamstrings 5/5, tibialis anterior 5/5, gastroc-soleus 5/5, EHL 5/5 Sensory: -Intact to light touch throughout -Normal proprioception throughout Reflexes: -1-2+ DTR's throughout -No Cowan's, clonus, or Babinski bilaterally Assessment and Plan Assessment and plan (1) Left carpal tunnel syndrome: Code(s): G56.02 - Carpal tunnel syndrome, left upper limb Status: Acute Plan Ms. Worley is a 80-year-old female with history of posterior cervical decompression and fusion for myelopathy in August 2023 who has been doing well from that surgery but has worsening carpal tunnel symptoms in her left hand. She is at the point of wishing to pursue surgery. On physical exam, she does have positive Tinel's and Phalen's at the carpal tunnel and has decreased sensation to light touch throughout the palmar aspects of her 1st 4 fingers. She has an EMG confirming carpal tunnel syndrome. We will proceed with left carpal tunnel release. We discussed surgery in detail including risks, expected recovery, and restrictions after surgery.
[2025-06-30] MEDS: ceFAZolin 2 GM in SODIUM CHLORIDE 0.9% IV 50 ML 100 ML IVPB (09:52)
[2025-06-30] MEDS: BUPivacaine HCL 0.5% 10 ML AMP INFILTRATE (10:09)
[2025-06-30 10:35] VITALS: BP 131/68; PULSE 53; RESP 14; O2SAT 98
--- NOTE | 2025-06-30 10:44 | P.OP_ITS ---
Procedure Note - Detailed Date of Procedure 06/30/25 Pre-op Diagnosis Left Carpal Tunnel Syndrome Post-op Diagnosis Same Procedure Performed Left carpal tunnel release Surgeon Florecita Moon MD Entry Level Machine Operator Cecilia DICK Description of Procedure The patient was brought to the operating room where anesthesia was induced. The patient remained supine on the bed with the left arm extended onto an armboard. A straight incision on the ulnar side of the thenar crease in line with the anterior webspace between the third and fourth finger was planned. The hand and arm were prepped and draped in usual sterile fashion. Time-out was performed. The incision was injected local anesthetic. A 15 blade scalpel was used to open the incision. The bipolar was used to obtain hemostasis. A Metzenbaum scissor was used to bluntly separate the subcutaneous tissue until the flexor retinaculum was visualized. A self- retaining retractor was placed. A new 15 blade scalpel was then used to slowly open the flexor retinaculum, first extending distally until fat was identified. I then focused on the proximal opening of the carpal tunnel. Under direct visualization and using Metzenbaum scissors, the flexor retinaculum was opened proximally until the carpal tunnel was felt to be fully decompressed. The extent of the opening was checked again to confirm that the nerve was fully decompressed. The surgical site was copiously irrigated. Hemostasis was verified with the bipolar. The skin was closed with 3-0 nylon vertical mattress sutures which was then dressed with fluff gauze, Kerlix, and an Chaim bandage. The arm was placed into a sling. The patient was awakened from anesthesia and transferred to the PACU without incident. Billing code: [id number] Estimated Blood Loss 5 Drains No Packing No Pathology None sent Complications None Condition Stable Disposition PACU [facility] Billing Surgery - Charge Forward: Surgery Billing
[2025-06-30 11:05] VITALS: BP 126/55; PULSE 52; RESP 20
[2025-06-30 11:30] VITALS: BP 126/60; PULSE 52; RESP 20
== END 2025-06-30 11:39 | disposition home or self-care (01) ==
PROVIDERS: PCP Family Medicine; Visit Provider Neurological Surgery
PROC: (CPT 64721; principal; 2025-06-30 10:30)
DX: G56.02 Carpal tunnel syndrome, left upper limb (principal)
CPT/HCPCS: 64721; J0690; A9270; J1100; J2003; J2405; J2704; J3010; J7120